=== PATIENT | female | born 1960 | race African-American/Black ===

== ENCOUNTER 2017-04-12 16:25 | Emergency (ER) | payer MEDICARE, OTHER ==
[~2017-04-12] VITALS: Ht 157.5 cm; Wt 90.0 kg
[~2017-04-12 16:25] MED LIST: ALBU17I INH; ATOR40TA PO; BUME1TAB PO; COUM5TAB PO; CYCL1PAK PO; DICY10CA13 PO; DOCU1CAP39 PO; DULE100A INH; FERR324T4 PO; FIORIC PO; FLUO20TA20 PO; FLUT50SP EACH NARE; GUAI100S6 PO; LEVO50TA48 PO; LISI-357 PO; METO50TA PO; METO5TAB46 PO; MONT10 PO; ONDA4 PO; PERC5TAB12 PO; POTA10TA2 PO; PROM25TA5 PO; PROT40TA PO; RANI150T PO; SODIPAK2; TERB1CRE2 TOP; XANA1TAB6 PO; ZOLP10TA3 PO
[2017-04-12 16:29] VITALS: BP 148/85; PULSE 103; RESP 18; TEMP 98.1; O2SAT 99
--- NOTE | 2017-04-12 17:00 | PD ---
HPI Chief Complaint: Fall Time Seen by Provider: 17:00 Travel History International Travel<30 days: No Contact w/Intl Traveler<30days: No Traveled to known affect area: No History of Present Illness HPI 56 YO F presents to the ED for evaluation of PFSH Past Medical History Hx Anticoagulant Therapy: Yes (WARFARIN ) Arthritis: Yes Asthma: Yes Autoimmune Disease: No Blood Disorders: No Anxiety: No Depression: No Heart Rhythm Problems: Yes (IRREGULAR HEART BEAT) Cancer: No Cardiac Catheterization: Yes (MAY 2004 30 TO 40% 1 SERGE CIRC) Cardiomyopathy: Yes Cardiovascular Problems: Yes (A-FIB, MECHANICAL HEART VALVE, PACEMAKER ) High Cholesterol: Yes Chemotherapy: No Chest Pain: Yes Congestive Heart Failure: Yes COPD: Yes Cerebrovascular Accident: No Coronary Artery Disease: Yes Diabetes: Yes (BORDERLINE) Diminished Hearing: No Endocrine: Yes Gastrointestinal Disorders: Yes (IRRITABLE BOWEL SYNDROME, GASTROPARESIS) GERD: Yes Glaucoma: No Genitourinary: No Headaches: Yes Hepatitis: No Hiatal Hernia: Yes Hypertension: Yes Immune Disorder: No Implanted Vascular Access Dvce: Yes Kidney Stones: No Musculoskeletal: No Neurologic: Yes Psychiatric: No Reproductive: No Respiratory: Yes (COPD) Migraines: No Myocardial Infarction: No Radiation Therapy: No Renal Failure: No Seizures: No Sickle Cell Disease: No Sleep Apnea: No Thyroid Disease: Yes (THYROID REMOVED) Ulcer: No : 4 Para: 4 Past Surgical History Abdominal Surgery: Yes (CHOLEY) AICD: No Appendectomy: No Arteriovenous Shunt: No Body Medical Devices: MECHANICAL HEART VALVE Cardiac Surgery: Yes (VALVE REPLACEMENT/ MECHANICAL VALVE) Cholecystectomy: Yes Coronary Artery Bypass Graft: Yes (2003) Endocrine Surgery: Yes Gynecologic Surgery: Yes (HYSTERECTOMY) Hysterectomy: Yes (FULL) Insulin Pump: No Joint Replacement: No Pacemaker: Yes (AICD [place],ANESTHESIA AWARE) Valve Replacement: Yes Other Surgery: Yes (GASTRIC BYPASS 2011) Social History Alcohol Use: No Tobacco Use: No Substance Use: No Allergies-Medications (Allergen,Severity, Reaction): Coded Allergies: Lovenox (Verified Allergy, Severe, RASH,HIVES,SEVERE ITCHING, 05/28/16) Lortab (Verified Adverse Reaction, Intermediate, NAUSEA/VOMITING, 05/28/16) Percodan (Verified Adverse Reaction, Intermediate, NAUSEA AND VOMITING, 05/28/16) Uncoded Allergies: ANTIBIOTICS (Adverse Reaction, Unknown, 05/28/16) PER PCP DONT TAKE ANY ANTIBIOTICS. Reported Meds & Prescriptions Reported Meds & Active Scripts Active Phenergan 25 mg (Promethazine HCl) 25 Mg Tab 25 Mg PO Q6H PRN Percocet 5-325 mg (Oxycodone/Acetaminophen) 1 Tab 1-2 Tab PO Q6H PRN Metoprolol Tartrate 50 mg (Metoprolol Tartrate) 50 Mg Tab 50 Mg PO DAILY Ferrous Sulfate 325 Mg Tab 325 Mg PO BID 28 Days Protonix (Pantoprazole Sodium) 40 Mg Tabdr 40 Mg PO BID Coumadin 5 mg (Warfarin Sodium) Warfarin Sodium 5 mg Tab 10 Mg PO DAILY 15mg po daily x 3 days then 10mg po daily Reported Xanax 1 mg (Alprazolam) Alprazolam 1 mg Tab 1 Tab PO BID Ambien 10 Mg Tab (Zolpidem Tartrate) 10 Mg Tab 10 Mg PO HS PRN Terbinafine Hcl 1 % Cre 1 Applic TOP 2-3 TIMES A DAY Ranitidine 150 mg (Ranitidine HCl) 150 Mg Tab 150 Mg PO BID Phenergan 25 mg (Promethazine HCl) 25 Mg Tab 25 Mg PO Q6H PRN Prepopik (Sodium Picosulfate-Magnesium O) Maximiliano DIRECTED Zofran 4 Mg Tab (Ondansetron Hcl) 4 Mg Tab 4 Mg PO Q8HR PRN Montelukast Sodium 10 Mg Tab 10 Mg PO HS Metolazone 5 Mg Tab 5 Mg PO DAILY Lisinopril 5 mg (Lisinopril) 5 Mg Tab 5 Mg PO DAILY Fluticasone Propionate (Nasal) 50 Mcg Spr 2 Page EACH NARE DAILY PRN Dulera 100 mcg/dose (Mometasone Furoate-Formoterol 100 mcg/dose) 100 mcg/ actuation Inh 1 Puff INH BID Cyclobenzaprine HCl 10 Mg Tab 10 Mg PO TID Colace 100 Mg Cap (Docusate Sodium) 100 Mg Cap 100 Mg PO Q12HR Robitussin Ac (Guaifenesin/Codeine Phosphate) Syrp 5 Ml PO Q8HR PRN FOR COUGH Fioricet Tab (Acetaminophen/Butalbital/Caffeine) 1 Tab 1-2 Tab PO Q4H PRN Fluoxetine (Fluoxetine HCl) 20MG Cap 40 Mg PO DAILY Dicyclomine 10 mg (Dicyclomine HCl) 10 Mg Cap 20 Mg PO BID Ventolin Hfa (Albuterol Sulfate) 108 Mcg/Act Aer 2 Puff INH Q4-6H PRN Atorvastatin 40 mg (Atorvastatin Calcium) 40 Mg Tab 40 Mg PO HS Potassium Chloride Er (Potassium Chloride) 10 Meq Tab 20 Meq PO DAILY Bumetanide 1 Mg (Bumetanide) 1 Mg Tab 1 Mg PO BID Levothroid (Levothyroxine Sodium) 50 Mcg Tab 50 Mcg PO DAILY Data Data Last Documented VS Vital Signs Date Time Temp Pulse Resp B/P Pulse Ox O2 Delivery O2 Flow Rate FiO2 04/12/17 16:29 98.1 103 18 148/85 99 Meenakshi Pinto Apr 12, 2017 17:00
--- NOTE | 2017-04-12 17:23 | PD ---
HPI Chief Complaint: Fall Time Seen by Provider: 17:22 Travel History International Travel<30 days: No Contact w/Intl Traveler<30days: No Traveled to known affect area: No History of Present Illness HPI 56 YO F with PMH of mechanical valve placement, on Coumadin presents to the ED for evaluation of bilateral knee and left hip pain. Onset just before arrival. Patient states that she fell in the hallway of the hospital onto to both knees. She has not been ambulatory since the accident. She denies hitting her head or loss of consciousness. Additionally the patient complains of "high Coumadin level." She states that she was called by her doctor yesterday and told that her Coumadin level was "800." PFSH Past Medical History Hx Anticoagulant Therapy: Yes (WARFARIN ) Arthritis: Yes Asthma: Yes Autoimmune Disease: No Blood Disorders: No Anxiety: No Depression: No Heart Rhythm Problems: Yes (IRREGULAR HEART BEAT) Cancer: No Cardiac Catheterization: Yes (MAY 2004 30 TO 40% 1 SERGE CIRC) Cardiomyopathy: Yes Cardiovascular Problems: Yes (A-FIB, MECHANICAL HEART VALVE, PACEMAKER ) High Cholesterol: Yes Chemotherapy: No Chest Pain: Yes Congestive Heart Failure: Yes COPD: Yes Cerebrovascular Accident: No Coronary Artery Disease: Yes Diabetes: Yes (BORDERLINE) Diminished Hearing: No Endocrine: Yes Gastrointestinal Disorders: Yes (IRRITABLE BOWEL SYNDROME, GASTROPARESIS) GERD: Yes Glaucoma: No Genitourinary: No Headaches: Yes Hepatitis: No Hiatal Hernia: Yes Hypertension: Yes Immune Disorder: No Implanted Vascular Access Dvce: Yes Kidney Stones: No Musculoskeletal: No Neurologic: Yes Psychiatric: No Reproductive: No Respiratory: Yes (COPD) Migraines: No Myocardial Infarction: No Radiation Therapy: No Renal Failure: No Seizures: No Sickle Cell Disease: No Sleep Apnea: No Thyroid Disease: Yes (THYROID REMOVED) Ulcer: No : 4 Para: 4 Past Surgical History Abdominal Surgery: Yes ([facility]LEY) AICD: No Appendectomy: No Arteriovenous Shunt: No Body Medical Devices: MECHANICAL HEART VALVE Cardiac Surgery: Yes (VALVE REPLACEMENT/ MECHANICAL VALVE) Cholecystectomy: Yes Coronary Artery Bypass Graft: Yes (2003) Endocrine Surgery: Yes Gynecologic Surgery: Yes (HYSTERECTOMY) Hysterectomy: Yes (FULL) Insulin Pump: No Joint Replacement: No Pacemaker: Yes (AICD [place],ANESTHESIA AWARE) Valve Replacement: Yes Other Surgery: Yes (GASTRIC BYPASS 2011) Social History Alcohol Use: No Tobacco Use: No Substance Use: No Allergies-Medications (Allergen,Severity, Reaction): Coded Allergies: Lovenox (Verified Allergy, Severe, RASH,HIVES,SEVERE ITCHING, 05/28/16) Lortab (Verified Adverse Reaction, Intermediate, NAUSEA/VOMITING, 05/28/16) Percodan (Verified Adverse Reaction, Intermediate, NAUSEA AND VOMITING, 05/28/16) Uncoded Allergies: ANTIBIOTICS (Adverse Reaction, Unknown, 05/28/16) PER PCP DONT TAKE ANY ANTIBIOTICS. Reported Meds & Prescriptions Reported Meds & Active Scripts Active Percocet (Oxycodone-Acetaminophen) 5-325 mg Tab 1 Tab PO Q6H PRN Phenergan 25 mg (Promethazine HCl) 25 Mg Tab 25 Mg PO Q6H PRN Percocet 5-325 mg (Oxycodone/Acetaminophen) 1 Tab 1-2 Tab PO Q6H PRN Metoprolol Tartrate 50 mg (Metoprolol Tartrate) 50 Mg Tab 50 Mg PO DAILY Ferrous Sulfate 325 Mg Tab 325 Mg PO BID 28 Days Protonix (Pantoprazole Sodium) 40 Mg Tabdr 40 Mg PO BID Coumadin 5 mg (Warfarin Sodium) Warfarin Sodium 5 mg Tab 10 Mg PO DAILY 15mg po daily x 3 days then 10mg po daily Reported Xanax 1 mg (Alprazolam) Alprazolam 1 mg Tab 1 Tab PO BID Ambien 10 Mg Tab (Zolpidem Tartrate) 10 Mg Tab 10 Mg PO HS PRN Terbinafine Hcl 1 % Cre 1 Applic TOP 2-3 TIMES A DAY Ranitidine 150 mg (Ranitidine HCl) 150 Mg Tab 150 Mg PO BID Phenergan 25 mg (Promethazine HCl) 25 Mg Tab 25 Mg PO Q6H PRN Prepopik (Sodium Picosulfate-Magnesium O) Maximiliano DIRECTED Zofran 4 Mg Tab (Ondansetron Hcl) 4 Mg Tab 4 Mg PO Q8HR PRN Montelukast Sodium 10 Mg Tab 10 Mg PO HS Metolazone 5 Mg Tab 5 Mg PO DAILY Lisinopril 5 mg (Lisinopril) 5 Mg Tab 5 Mg PO DAILY Fluticasone Propionate (Nasal) 50 Mcg Spr 2 [place] EACH NARE DAILY PRN Dulera 100 mcg/dose (Mometasone Furoate-Formoterol 100 mcg/dose) 100 mcg/ actuation Inh 1 Puff INH BID Cyclobenzaprinepax 10 & 0.0375-5 mg & % ([id number]) 10 Mg Tab 10 Mg PO TID Colace 100 Mg Cap (Docusate Sodium) 100 Mg Cap 100 Mg PO Q12HR Robitussin Ac (Guaifenesin/Codeine Phosphate) Syrp 5 Ml PO Q8HR PRN FOR COUGH Fioricet Tab (Acetaminophen/Butalbital/Caffeine) 1 Tab 1-2 Tab PO Q4H PRN Fluoxetine Hcl (Fluoxetine HCl) 20MG Cap 40 Mg PO DAILY Dicyclomine HCl 10 Mg Cap 20 Mg PO BID Ventolin Hfa (Albuterol Sulfate) 108 Mcg/Act Aer 2 Puff INH Q4-6H PRN Atorvastatin 40 mg (Atorvastatin Calcium) 40 Mg Tab 40 Mg PO HS Potassium Chloride Er (Potassium Chloride) 10 Meq Tab 20 Meq PO DAILY Bumetanide 1 Mg (Bumetanide) 1 Mg Tab 1 Mg PO BID Levothroid (Levothyroxine Sodium) 50 Mcg Tab 50 Mcg PO DAILY Review of Systems Except as stated in HPI: all other systems reviewed are Neg Physical Exam Narrative GENERAL: Well-nourished, well-developed black female in no acute distress. SKIN: Focused skin assessment warm/dry. No ecchymosis over the knees bilaterally. HEAD: Normocephalic. EYES: No scleral icterus. No injection or drainage. NECK: Supple, trachea midline. No JVD or lymphadenopathy. CARDIOVASCULAR: Regular rate and rhythm without murmurs, gallops, or rubs. 2+ DP pulses bilaterally. RESPIRATORY: Breath sounds clear and equal bilaterally. No accessory muscle use. GASTROINTESTINAL: Abdomen soft, non-tender, nondistended. Active bowel sounds. MUSCULOSKELETAL: No cyanosis, or edema. TTP of bilateral anterior knees. No popliteal tenderness. Pain elicited with attempted R OM. Tender to palpation of the lateral aspect of the left hip. No foreshortening or internal rotation of the leg noted. BACK: Nontender without obvious deformity. No CVA tenderness. Data Data Last Documented VS Vital Signs Date Time Temp Pulse Resp B/P Pulse Ox O2 Delivery O2 Flow Rate FiO2 04/12/17 19:05 89 18 139/81 100 Room Air 04/12/17 16:29 98.1 Orders Hip, Uni(Ap&Lat) W Ap Pelvis (04/12/17 17:29) Knee, Complete (4vws) (04/12/17 17:29) Knee, Complete (4vws) (04/12/17 17:29) Ice/Cold Pack (04/12/17 17:29) Basic Metabolic Panel (Bmp) (04/12/17 17:29) Complete Blood Count With Diff (04/12/17 17:29) Prothrombin Time / Inr (Pt) (04/12/17 17:29) Act Partial Throm Time (Ptt) (04/12/17 17:29) Urinalysis - C+S If Indicated (04/12/17 17:29) Iv Access Insert/Monitor (04/12/17 17:29) Ondansetron Inj (Zofran Inj) (04/12/17 17:30) Sodium Chloride 0.9% Flush (Ns Flush) (04/12/17 17:30) Ketorolac Inj (Toradol Inj) (04/12/17 17:45) Oxycodone-Acetamin 5-325 Mg (Percocet (04/12/17 17:45) Potassium Chloride (Kcl) (04/12/17 19:00) Potassium Chlor 20 Meq Premix (Kcl 20 Me (04/12/17 19:00) Labs Laboratory Tests Test 04/12/17 17:45 White Blood Count 8.4 TH/MM3 Red Blood Count 5.02 MIL/MM3 Hemoglobin 11.1 GM/DL Hematocrit 36.6 % Mean Corpuscular Volume 72.9 FL Mean Corpuscular Hemoglobin 22.1 PG Mean Corpuscular Hemoglobin 30.3 % Concent Red Cell Distribution Width 19.8 % Platelet Count 223 TH/MM3 Mean Platelet Volume 8.5 FL Neutrophils (%) (Auto) 70.5 % Lymphocytes (%) (Auto) 17.7 % Monocytes (%) (Auto) 10.6 % Eosinophils (%) (Auto) 0.8 % Basophils (%) (Auto) 0.4 % Neutrophils # (Auto) 5.9 TH/MM3 Lymphocytes # (Auto) 1.5 TH/MM3 Monocytes # (Auto) 0.9 TH/MM3 Eosinophils # (Auto) 0.1 TH/MM3 Basophils # (Auto) 0.0 TH/MM3 CBC Comment DIFF FINAL Differential Comment Prothrombin Time 15.0 SEC Prothromb Time International 1.3 RATIO Ratio Activated Partial 30.6 SEC Thromboplast Time Sodium Level 134 MEQ/L Potassium Level 2.7 MEQ/L Chloride Level 89 MEQ/L Carbon Dioxide Level 32.1 MEQ/L Anion Gap 13 MEQ/L Blood Urea Nitrogen 45 MG/DL Creatinine 1.58 MG/DL Estimat Glomerular Filtration 41 ML/MIN Rate Random Glucose 101 MG/DL Calcium Level 8.8 MG/DL MDM Medical Decision Making Medical Screen Exam Complete: Yes Emergency Medical Condition: Yes Differential Diagnosis musculoskeletal pain versus contusion versus fracture versus dislocation versus internal derangement versus other Narrative Course 56 YO F presents to the ED for evaluation of bilateral knee and left hip pain. Onset just before arrival. Patient states that she fell in the hallway of the hospital and to both knees. She has not been ambulatory since the accident. Additionally the patient complains of "high Coumadin level." She states that she was called by her doctor yesterday and told that her Coumadin level was "800." He is tachycardic in triage with this resolved during the course of evaluation. On physical exam this is a nontoxic-appearing obese black female in no acute distress. This tenderness to palpation of the anterior aspect of the bilateral knees in the lateral aspect of the left hip. Patient cries out with attempted ROM. His equal pulses in the distal extremity is bilaterally. I asked were applied. Patient was administered Toradol and Percocet. X-rays, labs ordered and pending. Disposition per Dr. Regalado. Scripts Oxycodone-Acetaminophen (Percocet)5-325 mg Tab1 Tab PO Q6H PRN (PAIN) #20 TAB Ref 0 Prov:Gerard Regalado MD 04/12/17 Meenakshi Pinto Apr 12, 2017 17:23
[2017-04-12] MEDS ORDERED: SODIUM CHLORIDE 0.9% FLUSH 10 ML FLUSH IV FLUSH PRN (17:30)
[2017-04-12] MEDS ORDERED: MORPHINE SULFATE 4 MG/ML INJ IV PUSH ONE (17:30)
[2017-04-12] MEDS ORDERED: ONDANSETRON HCL 4 MG/2 ML VIAL IVP ONE (17:30)
[2017-04-12] MEDS ORDERED: oxyCODONE/ACETAMINOPHEN 5 MG/325 MG TAB PO ONE (17:45)
[2017-04-12] MEDS ORDERED: KETOROLAC TROMETHAMINE 30 MG/ML (IVP) VIAL IV PUSH ONE (17:45)
[2017-04-12 18:05] LABS: AUTOMATED NEUTROPHIL # 5.9 TH/MM3 (1.8-7.7); BASOPHIL % 0.4 % (0.0-2.0); EOSINOPHIL # 0.1 TH/MM3 (0-0.4); EOSINOPHIL % 0.8 % (0.0-4.0); HEMATOCRIT 36.6 % (35.0-46.0); HEMO FLAGS DIFF FINAL; LYMPH % 17.7 % (9.0-44.0); LYMPHOCYTE # 1.5 TH/MM3 (1.0-4.8); MEAN CELL VOLUME 72.9 FL (80.0-100.0); MEAN CORPUSCULAR HEMOGLOBIN 22.1 PG (27.0-34.0); MEAN CORPUSCULAR HGB CONC 30.3 % (32.0-36.0); MONO % 10.6 % (0.0-8.0); NEUT % 70.5 % (16.0-70.0); PLATELET COUNT 223 TH/MM3 (150-450); RED BLOOD COUNT 5.02 MIL/MM3 (4.00-5.30); RED CELL DISTRIBUTION WIDTH 19.8 % (11.6-17.2); WHITE BLOOD COUNT 8.4 TH/MM3 (4.0-11.0)
[2017-04-12 18:12] LABS: APTT (PATIENT) 30.6 SEC (24.3-30.1); INTERNATIONAL NORMALIZED RATIO 1.3 RATIO
--- NOTE | 2017-04-12 18:17 | RADRPT ---
EXAM DATE/TIME: 04/12/2017 17:50 [facility] COMPARISON: No previous studies available for comparison. INDICATIONS : Left hip pain post fall today MEDICAL HISTORY : None. SURGICAL HISTORY : None. ENCOUNTER: Initial ACUITY: 1 day PAIN SCORE: 8/10 LOCATION: Left entire hip FINDINGS: 3 views of the left hip and pelvis. Bone alignment within normal limits. No evidence of fracture. No evidence of joint narrowing. CONCLUSION: No evidence of fracture. Hector Miles MD on April 12, 2017 at 18:13 Board Certified Radiologist. This report was verified electronically.
--- NOTE | 2017-04-12 18:20 | RADRPT ---
EXAM DATE/TIME: 04/12/2017 17:53 [facility] COMPARISON: No previous studies available for comparison. INDICATIONS : Right knee pain post fall today MEDICAL HISTORY : None. SURGICAL HISTORY : None. ENCOUNTER: Initial ACUITY: 1 day PAIN SCORE: 10/10 LOCATION: Right entire knee FINDINGS: 4 views of the right knee. Moderate-sized medial compartment osteophytes. Small lateral compartment a nd patellofemoral compartment osteophytes. Mild medial compartment narrowing. No evidence of fracture . No evidence of joint effusion. CONCLUSION: Mild to moderate osteoarthritic findings of the right knee. No evidence of fracture. Hector Miles MD on April 12, 2017 at 18:17 Board Certified Radiologist. This report was verified electronically.
--- NOTE | 2017-04-12 18:21 | RADRPT ---
EXAM DATE/TIME: 04/12/2017 17:55 [facility] COMPARISON: No previous studies available for comparison. INDICATIONS : Left knee pain post fall today MEDICAL HISTORY : None. SURGICAL HISTORY : None. ENCOUNTER: Initial ACUITY: 1 day PAIN SCORE: 10/10 LOCATION: Left entire knee FINDINGS: 4 views of left knee. Moderate-sized medial compartment osteophytes. Small lateral compartment and pa tellofemoral compartment osteophytes. Mild medial compartment narrowing. Bone alignment within normal limits. No evidence of fracture. No evidence of joint effusion. CONCLUSION: [id number] osteoarthritic findings. Hector Miles MD on April 12, 2017 at 18:18 Board Certified Radiologist. This report was verified electronically.
[2017-04-12 18:22] VITALS: BP 134/96; PULSE 62; RESP 18; O2SAT 99
[2017-04-12 18:33] LABS: BICARBONATE 32.1 MEQ/L (21.0-32.0)
[2017-04-12 18:36] LABS: POTASSIUM 2.7 MEQ/L (3.5-5.1)
[2017-04-12] MEDS ORDERED: POTASSIUM CHLOR 20 MEQ PREMIX 100 ML IV ONE (19:00)
[2017-04-12] MEDS ORDERED: POTASSIUM CHLORIDE 20 MEQ CONTROLLED RELEASE TAB PO ONE (19:00)
[2017-04-12 19:05] VITALS: BP 139/81; PULSE 89; RESP 18; O2SAT 100
--- NOTE | 2017-04-12 20:02 | PD ---
Physical Exam Narrative Patient was seen by my tourist information assistant and signed out to me. Patient fell on the right knee today and complains mostly of right knee pain. Patient also has history of hypokalemia. Data Data Last Documented VS Vital Signs Date Time Temp Pulse Resp B/P Pulse Ox O2 Delivery O2 Flow Rate FiO2 04/12/17 19:05 89 18 139/81 100 Room Air 04/12/17 16:29 98.1 Orders Hip, Uni(Ap&Lat) W Ap Pelvis (04/12/17 17:29) Knee, Complete (4vws) (04/12/17 17:29) Knee, Complete (4vws) (04/12/17 17:29) Ice/Cold Pack (04/12/17 17:29) Basic Metabolic Panel (Bmp) (04/12/17 17:29) Complete Blood Count With Diff (04/12/17 17:29) Prothrombin Time / Inr (Pt) (04/12/17 17:29) Act Partial Throm Time (Ptt) (04/12/17 17:29) Urinalysis - C+S If Indicated (04/12/17 17:29) Iv Access Insert/Monitor (04/12/17 17:29) Ondansetron Inj (Zofran Inj) (04/12/17 17:30) Sodium Chloride 0.9% Flush (Ns Flush) (04/12/17 17:30) Ketorolac Inj (Toradol Inj) (04/12/17 17:45) Oxycodone-Acetamin 5-325 Mg (Percocet (04/12/17 17:45) Potassium Chloride (Kcl) (04/12/17 19:00) Potassium Chlor 20 Meq Premix (Kcl 20 Me (04/12/17 19:00) Labs Laboratory Tests Test 04/12/17 17:45 White Blood Count 8.4 TH/MM3 Red Blood Count 5.02 MIL/MM3 Hemoglobin 11.1 GM/DL Hematocrit 36.6 % Mean Corpuscular Volume 72.9 FL Mean Corpuscular Hemoglobin 22.1 PG Mean Corpuscular Hemoglobin 30.3 % Concent Red Cell Distribution Width 19.8 % Platelet Count 223 TH/MM3 Mean Platelet Volume 8.5 FL Neutrophils (%) (Auto) 70.5 % Lymphocytes (%) (Auto) 17.7 % Monocytes (%) (Auto) 10.6 % Eosinophils (%) (Auto) 0.8 % Basophils (%) (Auto) 0.4 % Neutrophils # (Auto) 5.9 TH/MM3 Lymphocytes # (Auto) 1.5 TH/MM3 Monocytes # (Auto) 0.9 TH/MM3 Eosinophils # (Auto) 0.1 TH/MM3 Basophils # (Auto) 0.0 TH/MM3 CBC Comment DIFF FINAL Differential Comment Prothrombin Time 15.0 SEC Prothromb Time International 1.3 RATIO Ratio Activated Partial 30.6 SEC Thromboplast Time Sodium Level 134 MEQ/L Potassium Level 2.7 MEQ/L Chloride Level 89 MEQ/L Carbon Dioxide Level 32.1 MEQ/L Anion Gap 13 MEQ/L Blood Urea Nitrogen 45 MG/DL Creatinine 1.58 MG/DL Estimat Glomerular Filtration 41 ML/MIN Rate Random Glucose 101 MG/DL Calcium Level 8.8 MG/DL MDM Supervised Visit with LOWELL: Yes Interpretation(s) Last Impressions Knee X-Ray 04/12/[id number] Signed Impressions: Service Date/Time: Wednesday, April 12, 2017 17:53 - CONCLUSION: Mild to moderate osteoarthritic findings of the right knee. No evidence of fracture. Hector Miles MD Knee X-Ray 04/12/[id number] Signed Impressions: Service Date/Time: Wednesday, April 12, 2017 17:55 - CONCLUSION: Mild-to- moderate osteoarthritic findings. Hector Miles MD Hip and Pelvis X-Ray 04/12/171728 Signed Impressions: Service Date/Time: Wednesday, April 12, 2017 17:50 - CONCLUSION: No evidence of fracture. Hector Miles MD 1950 9 PM. CBC with WBC 8.4. Hemoglobin 11.1 hematocrit 36.6. MCV 72.9. Normal differential. Sodium 134. Potassium 2.7. Chloride 89. Bicarbonate 32.1. BUN 45. Creatinine 1.58. INR 1.3. Narrative Course Patient has history of low potassium in the past. Patient has been seen by physician for low potassium. KCl 40 mEq By mouth given. KCl 20 mEq IV given. Diagnosis Primary Impression: Contusion of right knee Qualified Code: S80.01XA - Contusion of right knee, initial encounter Additional Impression: Hypokalemia Patient Instructions: General Instructions Additional Instruction: Advised patient to continue with potassium supplement at home. Follow with local physician for potassium checked next week. Percocet as needed for pain. Med/Other Pt SpecificInfo: Prescription(s) given Scripts Oxycodone-Acetaminophen (Percocet)5-325 mg Tab1 Tab PO Q6H PRN (PAIN) #20 TAB Ref 0 Prov:Gerard Regalado MD 04/12/17 Disposition: 01 DISCHARGE HOME Condition: Stable Gerard Regalado MD Apr 12, 2017 20:02
[2017-04-12] MEDS ORDERED: PERC5TAB12 PO (20:10)
== END 2017-04-12 22:49 | disposition home or self-care (01) ==
LOC: NEPD 16:25
DX: S80.01XA Contusion of right knee, initial encounter (principal); E87.6 Hypokalemia; J45.909 Unspecified asthma, uncomplicated; I48.91 Unspecified atrial fibrillation; I42.9 Cardiomyopathy, unspecified; E78.00 Pure hypercholesterolemia, unspecified; I50.9 Heart failure, unspecified; J44.9 Chronic obstructive pulmonary disease, unspecified; E11.9 Type 2 diabetes mellitus without complications; I25.10 Atherosclerotic heart disease of native coronary artery without angina pectoris; I10 Essential (primary) hypertension; K21.9 Gastro-esophageal reflux disease without esophagitis; Z95.0 Presence of cardiac pacemaker; Z95.2 Presence of prosthetic heart valve; Z79.01 Long term (current) use of anticoagulants; W19.XXXA Unspecified fall, initial encounter; Y93.01 Activity, walking, marching and hiking; Y92.239 Unspecified place in hospital as the place of occurrence of the external cause; Y99.8 Other external cause status
CPT/HCPCS: 73502; 73564; 80048; 85025; 85610; 85730; 96374; 96375; 99284; J1885; J2405; J3480

== ENCOUNTER 2018-06-05 11:11 | Inpatient (IN) ==
--- NOTE | 2018-06-05 15:21 | ED ---
HPI General Chief complaint: Recheck/Abnormal Lab/Rx Stated complaint: Medication refill Time Seen by Provider: 06/05/18 14:31 Source: patient Mode of arrival: ambulatory Limitations: no limitations History of Present Illness HPI narrative: 57-year-old female presents emergency department at the request of her field service analyst, Dr. Patel, for evaluation and admission for heparin treatment. Patient states that she takes Coumadin for a mechanical heart valve and has not been detecting this level in her blood work. She also states that Dr. An was notified of this admission prior to her presenting to the emergency department today. Her past medical history is significant for congestive heart failure, mechanical mitral valve, atrial fibrillation, COPD, diabetes mellitus type 2 with CKD III, chronic anemia, asthma, hypothyroidism. Patient denies any bleeding disorders or issues regarding her Coumadin. Says she has been on Coumadin for approximately 10 years without any issues. She denies fever, chills, chest pain, shortness breath, abdominal pain, leg pain. She states compliance with all of her medication to include Coumadin. Related Data Home Medications Medication Instructions Recorded Confirmed albuterol sulfate 2 puff INHALATION QID PRN 06/05/18 06/05/18 alprazolam [Xanax] 0.5 mg PO TID PRN 06/05/18 06/05/18 carvedilol 12.5 mg PO BID 06/05/18 06/05/18 escitalopram oxalate [Lexapro] 10 mg PO QPM 06/05/18 06/05/18 fluticasone 2 spray INTRANASAL QPM 06/05/18 06/05/18 furosemide 80 mg PO DAILY 06/05/18 06/05/18 levothyroxine 50 mcg PO DAILY 06/05/18 06/05/18 magnesium oxide 500 mg PO DAILY 06/05/18 06/05/18 oxycodone-acetaminophen [Percocet] 1 tab PO TID PRN 06/05/18 06/05/18 pantoprazole 40 mg PO BID 06/05/18 06/05/18 sennosides-docusate sodium [Senna 2 tab PO QPM 06/05/18 06/05/18 Laxative-Stool Softener] warfarin [Coumadin] 7.5 mg PO 5XW 06/05/18 06/05/18 warfarin [Coumadin] 10 mg PO 2XWEEK 06/05/18 06/05/18 zolpidem 5 mg PO QPM PRN 06/05/18 06/05/18 Allergies Allergy/AdvReac Type Severity Reaction Status Date / Time enoxaparin Allergy Severe RASH,HIVES,SEVERE Verified 06/05/18 15:03 ITCHING aspirin AdvReac Intermediate NAUSEA AND Unverified 06/11/17 14:09 VOMITING hydrocodone AdvReac Intermediate NAUSEA/VOMI Verified 06/05/18 15:03 TING Review of Systems ROS: all other systems reviewed are negative [facility] Medical History Medical History CHF (congestive heart failure) (Acute) COPD (chronic obstructive pulmonary disease) (Acute) HTN (hypertension) (Acute) History of thyroidectomy (Acute) Surgical History Surgical History AICD (automatic cardioverter/defibrillator) present (Acute) History of appendectomy (Acute) History of gastric bypass (Acute) Mechanical heart valve present (Acute) Status post complete hysterectomy (Acute) Social History Social History Substance History: No History of Abuse Smoking Status: Never smoker How Often Do You Have a Drink Containing Alcohol: Never Recent Travel in [facility] within the Last 8 Weeks: No Recent Out of Country Travel within the Last 8 Weeks: No Immunization History Tetanus Immunization: <5 Years Hx Influenza Vaccine This Season: Yes Exam Narrative Exam Narrative: GENERAL: Well-developed, well-nourished in no apparent distress SKIN: Focused skin assessment warm/dry. HEAD: Atraumatic. Normocephalic. EYES: Pupils equal and round. No scleral icterus. No injection or drainage. ENT: No nasal bleeding or discharge. Mucous membranes pink and moist. NECK: Trachea midline. No JVD. CARDIOVASCULAR: Regular rate and rhythm. No murmur appreciated. RESPIRATORY: No accessory muscle use. Clear to auscultation. Breath sounds equal bilaterally. GASTROINTESTINAL: Abdomen soft, non-tender, nondistended. Hepatic and splenic margins not palpable. MUSCULOSKELETAL: No obvious deformities. No clubbing. No cyanosis. No edema. No tenderness to palpation of the calves NEUROLOGICAL: Awake and alert. No obvious cranial nerve deficits. Motor grossly within normal limits. Normal speech. PSYCHIATRIC: Appropriate mood and affect; insight and judgment normal. Course Initial Documented Vital Signs Temperature 97.8 F 06/05/18 11:20 Pulse Rate 87 06/05/18 11:20 Respiratory Rate 16 06/05/18 11:20 Blood Pressure 103/69 06/05/18 11:20 Pulse Oximetry 97 06/05/18 11:20 Last Documented Vital Signs Temperature 97.8 F 06/05/18 11:20 Pulse Rate 86 06/05/18 14:51 Respiratory Rate 18 06/05/18 14:51 Blood Pressure 119/82 06/05/18 14:51 Pulse Oximetry 99 06/05/18 14:51 Medical Decision Making MDM Narrative Medical decision making narrative: 49-year-old female presents emergency department at the request of her field service analyst, Dr. Patel, for evaluation and treatment with heparin for mechanical heart valve and atrial fibrillation. She states that the level has been subtherapeutic. She was also notified that Dr. An was aware of her arriving to the emergency department for this issue. Vital signs are stable. Physical exam findings essentially unremarkable. 49-year-old female well- nourished, well-developed in no acute distress. Patient brought in paperwork from Dr. Patel. There was a lab collected yesterday for INR which was 1.2. Her target is 2.5-3.5 as she has mechanical heart valve. Patient also had labs done May 27. BUN/creatinine 96/2.61, EGFR 22 Labs ordered for initial evaluation and are stable. Pt has no complaints at this time. Patient will be admitted to Dr. An as originally planned. Differential Diagnosis Differential Diagnosis: Supratherapeutic INR, subtherapeutic INR, medication noncompliance Lab Data Result diagrams: 06/05/18 15:35 06/05/18 15:35 Lab Results 06/05/18 06/05/18 06/05/18 Range/Units 15:35 15:35 15:35 WBC 4.4 (4.0-11.0) th/mm3 RBC 4.42 (4.00-5.30) mil/mm3 Hgb 11.5 L (11.6-15.3) gm/dL Hct 37.3 (35.0-46.0) % MCV 84.5 (80.0-100.0) fL MCH 26.0 L (27.0-34.0) pg MCHC 30.8 L (32.0-36.0) % RDW 19.7 H (11.6-17.2) % Plt Count 181 (150-450) th/mm3 MPV 8.4 (7.0-11.0) fL Neut % (Auto) 57.1 (16.0-70.0) % Lymph % (Auto) 24.5 (9.0-44.0) % [place] % (Auto) 16.1 H (0.0-8.0) % Eos % (Auto) 1.8 (0.0-4.0) % Baso % (Auto) 0.5 (0.0-2.0) % Neut # (Auto) 2.5 (1.8-7.7) th/mm3 Lymph # (Auto) 1.1 (1.0-4.8) th/mm3 [place] # (Auto) 0.7 (0.0-0.9) th/mm3 Eos # (Auto) 0.1 (0.0-0.4) th/mm3 Baso # (Auto) 0.0 (0.0-0.2) th/mm3 WBC Differential . Differential Comment Auto diff final PT 12.7 H (9.8-11.6) sec INR 1.3 Ratio APTT 29.2 (24.3-30.1) sec Sodium 138 (136-145) meq/L Potassium 3.2 L (3.5-5.1) meq/L Chloride 97 L (98-107) meq/L Carbon Dioxide 33.4 H (21.0-32.0) meq/L Anion Gap 8 (5-15) meq/L BUN 50 H (7-18) mg/dL Creatinine 1.81 H (0.50-1.00) mg/dL Estimated GFR 35 L (>89) mL/min Random Glucose 97 (74-106) mg/dL Calcium 8.9 (8.5-10.1) mg/dL Total Bilirubin 0.9 (0.2-1.0) mg/dL AST 37 (15-37) U/L ALT 22 (10-53) U/L Alkaline Phosphatase 100 (45-117) U/L Total Protein 7.3 (6.4-8.2) g/dL Albumin 3.4 (3.4-5.0) g/dL Discharge Plan Discharge Disposition Patient Disposition: 30 Still Patient Discharge Condition Condition: Stable Discharge Details Diagnosis: Subtherapeutic international normalized ratio (INR) Physicians Team ED Provider: Lucas Aragon ED Midlevel Provider: Asha Ocampo Primary Care Provider: Bao Villarreal Attending Provider: Abdiel An Discharge Interventions Interventions: Vital Signs Last Done: 06/05/18 14:51 Status ED Status: Admitted Observation Patient
[2018-06-05 16:29] LABS: Baso % (Auto) 0.5 % (0.0-2.0); Eos # (Auto) 0.1 th/mm3 (0.0-0.4); Eos % (Auto) 1.8 % (0.0-4.0); Hematocrit 37.3 % (35.0-46.0); Hemoglobin 11.5 gm/dL (11.6-15.3); Lymph # (Auto) 1.1 th/mm3 (1.0-4.8); Lymph % (Auto) 24.5 % (9.0-44.0); Mean Corpuscular Volume 84.5 fL (80.0-100.0); Mean Platelet Volume 8.4 fL (7.0-11.0); Mono # (Auto) 0.7 th/mm3 (0.0-0.9); Mono % (Auto) 16.1 % (0.0-8.0); Neut # (Auto) 2.5 th/mm3 (1.8-7.7); Neut % (Auto) 57.1 % (16.0-70.0); Platelet Count 181 th/mm3 (150-450); Red Blood Count 4.42 mil/mm3 (4.00-5.30); Red Cell Distribution Width 19.7 % (11.6-17.2); White Blood Count 4.4 th/mm3 (4.0-11.0)
[2018-06-05 16:32] LABS: Mean Corpuscular HGB Conc 30.8 % (32.0-36.0)
[2018-06-05 16:48] LABS: Activated Partial Thrombo Time 29.2 sec (24.3-30.1); Alanine Aminotransferase 22 U/L (10-53); Albumin 3.4 g/dL (3.4-5.0); Anion Gap 8 meq/L (5-15); Aspartate Aminotransferase 37 U/L (15-37); Blood Urea Nitrogen 50 mg/dL (7-18); Calcium 8.9 mg/dL (8.5-10.1); Carbon Dioxide 33.4 meq/L (21.0-32.0); Chloride 97 meq/L (98-107); Glomerular Filtration Rate 35 mL/min (>89); Glucose,Random 97 mg/dL (74-106); INR 1.3 Ratio; Potassium 3.2 meq/L (3.5-5.1); Prothrombin Time 12.7 sec (9.8-11.6); Sodium 138 meq/L (136-145)
[2018-06-05 16:51] LABS: Alkaline Phosphatase 100 U/L (45-117); Total Protein 7.3 g/dL (6.4-8.2)
[2018-06-05] MEDS ORDERED: Acetaminophen 325 MG Tablet PO PRN (16:57)
[2018-06-05] MEDS ORDERED: ALPRAZolam 0.5 MG Tablet PO PRN (17:00)
--- NOTE | 2018-06-05 17:20 | P.HPIM ---
History of Present Illness Service: Pt is 57 yo with systolic chf ef 20%, afib, nsvt s/p bivaicd, copd, ckd 3, and mechanical mitral valve. Called by her cooling pipe inspector today. Pt with subtherapuetic inr of 1.2. about 10d ago it was 2.5..Pt says she was on her usual dose of 7.5mg 2x week and 5mg 5x week when she was admitted to [facility] 3weeks ago with supretherapeutic inr. She says the dose was reduced to 10mg 2x week and 2.5mg 5x per week. I was called today and told she was taking 7.5mg alternating with 5mg. Pt family also expresses concern that pt is not taking her medications correctly. Dr Patel says she uses heparin frequently at other hospital and has no allergic reactions to heparin as she did with enoxaparin. PMH: systolic chf. EF less 20% NSVT. s/p biv aicd mechanical mitral valve copd atrial fibrillation diabetes chronic anemia obdulia en y gastric bypass. 2010 gastritis ckd 3 anxiety glaucoma campylobacter diarrhea c.diff depression gastroparesis gerd hypothyroidism IBS lap shelia lysis of adhesion wedge resection stomach/abscess MVR. mechanical incisional hernia partial thyroidectomy sh. no etoh/tob Primary Care Physician: Bao Villarreal MD - Diagnosis (1) Subtherapeutic anticoagulation (2) H/O mitral valve replacement with mechanical valve (3) CKD (chronic kidney disease) stage 3, GFR 30-59 ml/min (4) Systolic CHF, chronic (5) Atrial fibrillation (6) COPD (chronic obstructive pulmonary disease) Review of Systems low inr PMFSH - History History Provided By: Patient - Medical History Medical History: Medical History (Last Updated 06/05/18 @ 15:32 by Eva Briggs RN) CHF (congestive heart failure) COPD (chronic obstructive pulmonary disease) HTN (hypertension) History of thyroidectomy - Surgical History Surgical History: Surgical History (Last Reviewed 06/05/18 @ 15:32 by Eva Briggs RN) AICD (automatic cardioverter/defibrillator) present History of appendectomy History of gastric bypass Mechanical heart valve present Status post complete hysterectomy - Tobacco History Smoking Status: Never smoker - Alcohol History How Often Do You Have a Drink Containing Alcohol: Never - Substance Use History Substance History: No History of Abuse - Travel History Recent Travel in the [facility] Within the Last 8 Weeks: No Recent Travel Out of the Country Within the Last 8 Weeks: No - Immunization History Tetanus Immunization: <5 Years Hx Influenza Vaccine This Season: Yes Medications and Allergies Active Medications: Active Medications Acetaminophen (Tylenol) 650 mg PO Q4H PRN PRN Reason: Temp > 100.4 Al Hydroxide/Mg Hydroxide (Milk Of Sandor Liq) 30 ml PO Q12H PRN PRN Reason: Mild Constipation Albuterol (Ventolin Hfa Inh) 2 puff INH QID PRN PRN Reason: Dyspnea Alprazolam (Xanax) 0.5 mg PO TID PRN PRN Reason: Anxiety Carvedilol (Coreg) 12.5 mg PO BID JEOVANNY Escitalopram Oxalate (Lexapro) 10 mg PO QPM JEOVANNY Fluticasone Propionate (Flonase Nasal [place]) 2 spray EACH NARE QPM JEOVANNY Furosemide (Lasix) 80 mg PO DAILY [facility] Heparin Sodium/Dextrose (Heparin/D5w 25,000 U/250 Ml) 25,000 unit in 250 mls @ 0 mls/hr IV.CONT TITRATE PRN; Protocol PRN Reason: Per Protocol Non-Formulary Medication (Levothyroxine [Levothyroxine]) 50 mcg PO DAILY JEOVANNY Non-Formulary Medication (Magnesium Oxide [Magnesium Oxide]) 500 mg PO DAILY JEOVANNY Oxycodone/Acetaminophen (Percocet 7.5/325 Mg) 1 tab PO TID PRN PRN Reason: Pain Pantoprazole Sodium (Protonix) 40 mg PO BID [facility] Senna/Docusate Sodium (Merline-Colace) 2 tab PO QPM JEOVANNY Warfarin Sodium (Coumadin) 10 mg PO DAILY@1600 JEOVANNY Zolpidem Tartrate (Ambien) 5 mg PO QPM PRN PRN Reason: Insomnia Allergies Allergy/AdvReac Type Severity Reaction Status Date / Time enoxaparin Allergy Severe RASH,HIVES,SEVERE Verified 06/05/18 15:03 ITCHING aspirin AdvReac Intermediate NAUSEA AND Verified 06/05/18 18:11 VOMITING hydrocodone AdvReac Intermediate NAUSEA/VOMI Verified 06/05/18 15:03 TING Home Medications Medication Instructions Recorded Confirmed Type albuterol sulfate 2 puff INHALATION QID PRN 06/05/18 06/05/18 History alprazolam [Xanax] 0.5 mg PO TID PRN 06/05/18 06/05/18 History carvedilol 12.5 mg PO BID 06/05/18 06/05/18 History escitalopram oxalate [Lexapro] 10 mg PO QPM 06/05/18 06/05/18 History fluticasone 2 spray INTRANASAL QPM 06/05/18 06/05/18 History furosemide 80 mg PO DAILY 06/05/18 06/05/18 History levothyroxine 50 mcg PO DAILY 06/05/18 06/05/18 History magnesium oxide 500 mg PO DAILY 06/05/18 06/05/18 History oxycodone-acetaminophen [Percocet] 1 tab PO TID PRN 06/05/18 06/05/18 History pantoprazole 40 mg PO BID 06/05/18 06/05/18 History ramipril PO DAILY 06/05/18 History sennosides-docusate sodium [Senna 2 tab PO QPM 06/05/18 06/05/18 History Laxative-Stool Softener] tiotropium bromide [Spiriva with 18 mcg INHALATION DAILY 06/05/18 06/05/18 History HandiHaler] warfarin [Coumadin] 5 mg PO DIRECTED 06/05/18 06/05/18 History zolpidem 5 mg PO QPM PRN 06/05/18 06/05/18 History Exam Vital signs: Vital Signs 06/05/18 11:20 06/05/18 14:51 Temperature 97.8 F Pulse Rate 87 86 Respiratory Rate 16 18 Blood Pressure 103/69 119/82 Pulse Oximetry 97 99 Intake & Output 06/04/18 06/05/18 06/05/18 18:59 06:59 18:59 Weight 79.832 kg heart. irreg. mvr click lung cta abd s/nt ext no edema Results - Labs CBC & Chem 7: 06/05/18 15:35 06/05/18 15:35 Labs: Short CBC 06/05/18 Range/Units 15:35 WBC 4.4 (4.0-11.0) th/mm3 Hgb 11.5 L (11.6-15.3) gm/dL Hct 37.3 (35.0-46.0) % Plt Count 181 (150-450) th/mm3 BMP 06/05/18 15:35 Sodium 138 Potassium 3.2 L Chloride 97 L Carbon Dioxide 33.4 H BUN 50 H Creatinine 1.81 H Calcium 8.9 Liver Function 06/05/18 Range/Units 15:35 Total Bilirubin 0.9 (0.2-1.0) mg/dL AST 37 (15-37) U/L ALT 22 (10-53) U/L Alkaline Phosphatase 100 (45-117) U/L Albumin 3.4 (3.4-5.0) g/dL Caprini VTE Risk Assessment Caprini VTE Risk Assessment: Moderate/High Risk (score >= 2) Caprini Risk Assessment Model: Point Value = 1 Point Value = 2 Point Value = 3 Point Value = 5 Age 41-60 Minor surgery BMI > 25 kg/m2 Swollen legs Varicose veins or History of unexplained or recurrent spontaneous Oral contraceptives or hormone replacement Sepsis (< 1 month) Serious lung disease, including pneumonia (< 1 month) Abnormal pulmonary function Acute myocardial infarction Congestive heart failure (< 1 month) History of inflammatory bowel disease Medical patient at bed rest Age 61-74 Arthroscopic surgery Major open surgery (> 45 min) Laparoscopic surgery (> 45 min) Malignancy Confined to bed (> 72 hours) Immobilizing plaster cast Central venous access Age >= 75 History of VTE Family history of VTE Factor V Leiden Prothrombin [id number] Lupus anticoagulant Anticardiolipin antibodies Elevated serum homocysteine Heparin-induced thrombocytopenia Other congenital or acquired thrombophilia Stroke (< 1 month) Elective arthroplasty Hip, pelvis, or leg fracture Acute spinal cord injury (< 1 month) Prophylaxis Regimen: Total Risk Factor Score Risk Level Prophylaxis Regimen 0-1 Low Early ambulation 2 Moderate Order ONE of the following: *Sequential Compression Device (SCD) *Heparin 5000 units SQ BID 3-4 Higher Order ONE of the following medications: *Heparin 5000 units SQ TID *Enoxaparin/Lovenox 40 mg SQ daily (WT < 150 kg, CrCl > 30 mL/min) *Enoxaparin/Lovenox 30 mg SQ daily (WT < 150 kg, CrCl > 10-29 mL/min) *Enoxaparin/Lovenox 30 mg SQ BID (WT < 150 kg, CrCl > 30 mL/min) AND/OR *Sequential Compression Device (SCD) 5 or more Highest Order ONE of the following medications: *Heparin 5000 units SQ TID (Preferred with Epidurals) *Enoxaparin/Lovenox 40 mg SQ daily (WT < 150 kg, CrCl > 30 mL/min) *Enoxaparin/Lovenox 30 mg SQ daily (WT < 150 kg, CrCl > 10-29 mL/min) *Enoxaparin/Lovenox 30 mg SQ BID (WT < 150 kg, CrCl > 30 mL/min) AND *Sequential Compression Device (SCD) Assessment and Plan - Assessment (1) Subtherapeutic anticoagulation Code(s): Z51.81 - Encounter for therapeutic drug level monitoring; Z79.01 - insurance claims specialist (current) use of anticoagulants Status: Acute Plan: 1.chronic systolic chf. ef 20%. currently compensated. 2.hx nsvt. biv aicd 3. mitral mechanical valve replacement. subtherapeutic inr. 4. ckd 3 5. copd. compensated. 6. atrial fibrillation called by cooling pipe inspector to admit for subtherapeutic inr for [employer]. MVR says pt not allergic to heparin and uses all the time at [facility] heparin gtt protocol ordered coumadin initiated monitor inr. discussed discharge plans with family to assist with medication administration. resume other home medications and hold as needed. (2) H/O mitral valve replacement with mechanical valve Code(s): Z95.2 - Presence of prosthetic heart valve Status: Acute (3) CKD (chronic kidney disease) stage 3, GFR 30-59 ml/min Code(s): N18.3 - Chronic kidney disease, stage 3 (moderate) Status: Chronic (4) Systolic CHF, chronic Code(s): I50.22 - Chronic systolic (congestive) heart failure Status: Chronic (5) Atrial fibrillation Code(s): I48.91 - Unspecified atrial fibrillation Status: Chronic (6) COPD (chronic obstructive pulmonary disease) Code(s): J44.9 - Chronic obstructive pulmonary disease, unspecified Status: Acute
--- NOTE | 2018-06-05 20:49 | P.PN ---
Subjective Interval history: Called to evaluate pt re: possible allergy to heparin since she is allergic to Lovenox. She has a plethora of underlying medical issues, but has been admitted for subtherapeutic INR in pt with mechanical valve. Discussed case with Dr An who talked with pt's design project manager, Dr Patel. I reviewed charts and d/w pt. she has been on heparin drip multiple times since she has an "allergic reaction" to Lovenox (she describes her reaction as a rash all over her body after her gastric bypass surgery." She didn't have throat tightness or other signs of anaphylaxis per her report. In either case, record review and her design project manager confirm that pt has not had any reaction to heparin. She typically is admitted at [facility] facility and was actually just d/c in mid-April from that facility. She was on abx and her INR dani to 4.3 on 05/20/18. her coumadin was held a couple of days and she was to resume previous dose as her abx were complete. There was some apparent confusion re: her understanding of dose to resume and she started taking 2.5 mg each , , F, Sa, Garcia and 10mg each M, Th instead of 10mg each M, Th and 7.5 mg all other days. Her INR was therefore low at 1.2 as outpt and she was sent in for heparin ggt by her design project manager. She has o/w been doing well and been c/w meds. No recent med changes except finishing abx and tapering pred from April hospital stay. Physical Exam Vital signs: Vital Signs 06/05/18 11:20 06/05/18 14:51 06/05/18 17:30 Temperature 97.8 F Pulse Rate 87 86 85 Respiratory Rate 16 18 20 Blood Pressure 103/69 119/82 99/56 L Pulse Oximetry 97 99 98 06/05/18 19:16 Temperature Pulse Rate 88 Respiratory Rate 15 Blood Pressure 90/69 L Pulse Oximetry 100 Intake & Output 06/05/18 06/05/18 06/06/18 06:59 18:59 06:59 Weight 79.832 kg Narrative: GENERAL: NAD, pleasant, sitting on side of bed, recognized me from previous care SKIN: Warm, xerotic HEAD: Normocephalic. EYES: No scleral icterus. No injection or drainage. NECK: Supple, trachea midline. No JVD or lymphadenopathy. CARDIOVASCULAR: Regular rate and rhythm with mid-systolic click and 2/6 LENKA along LSB RESPIRATORY: Breath sounds equal bilaterally. No accessory muscle use. No crackles, no wheeze GASTROINTESTINAL: Abdomen soft, non-tender, nondistended. BS nml MUSCULOSKELETAL: No cyanosis, FLEMING, 1+ edema in distal LE BACK: Nontender without obvious deformity. No CVA tenderness. Results - Labs CBC & Chem 7: 06/05/18 15:35 06/05/18 15:35 Laboratory Results - last 24 hr 06/05/18 06/05/18 06/05/18 15:35 15:35 15:35 WBC 4.4 Corrected WBC RBC 4.42 Hgb 11.5 L Hct 37.3 MCV 84.5 MCH 26.0 L MCHC 30.8 L RDW 19.7 H Plt Count 181 MPV 8.4 Neut % (Auto) 57.1 Lymph % (Auto) 24.5 [place] % (Auto) 16.1 H Eos % (Auto) 1.8 Baso % (Auto) 0.5 Neut # (Auto) 2.5 Lymph # (Auto) 1.1 [place] # (Auto) 0.7 Eos # (Auto) 0.1 Baso # (Auto) 0.0 WBC Differential . Differential Comment Auto diff final Hematology Comments PT 12.7 H INR 1.3 APTT 29.2 Sodium 138 Potassium 3.2 L Chloride 97 L Carbon Dioxide 33.4 H Anion Gap 8 BUN 50 H Creatinine 1.81 H Estimated GFR 35 L Random Glucose 97 Calcium 8.9 Total Bilirubin 0.9 AST 37 ALT 22 Alkaline Phosphatase 100 Total Protein 7.3 Albumin 3.4 06/05/18 15:35 WBC Cancelled Corrected WBC Cancelled RBC Cancelled Hgb Cancelled Hct Cancelled MCV Cancelled MCH Cancelled MCHC Cancelled RDW Cancelled Plt Count Cancelled MPV Cancelled Neut % (Auto) Lymph % (Auto) [place] % (Auto) Eos % (Auto) Baso % (Auto) Neut # (Auto) Lymph # (Auto) [place] # (Auto) Eos # (Auto) Baso # (Auto) WBC Differential Differential Comment Hematology Comments Cancelled PT INR APTT Sodium Potassium Chloride Carbon Dioxide Anion Gap BUN Creatinine Estimated GFR Random Glucose Calcium Total Bilirubin AST ALT Alkaline Phosphatase Total Protein Albumin Assessment and Plan - Assessment (1) Subtherapeutic international normalized ratio (INR) Code(s): R79.1 - Abnormal coagulation profile Status: Acute Plan: Likely due to miscommunication re: dose to resume recently. See above progress note for details. We will continue warfarin and start heparin. Pt has not had any adverse reaction to heparin despite listing Lovenox as allergy. Pharmacist and floor nurse informed to start hep ggt per previous orders. - Plan Code Status: full Discussed Condition With: pt, ER nurse, floor nurse, Dr An and hospital pharmacist
[2018-06-05] MEDS: Escitalopram 10 MG Tablet PO SCH (21:05)
[2018-06-05] MEDS: Senna/Docusate Sodium 8.6/50 MG Tablet PO SCH (21:05)
[2018-06-05] MEDS: Carvedilol 12.5 MG Tablet PO SCH (21:05)
[2018-06-05] MEDS: Zolpidem Tartrate 5 MG Tablet PO PRN (21:50)
[2018-06-05] MEDS: Heparin Drip 25,000 UNIT/250 ML BAG IV.CONT PRN (21:51)
[2018-06-06 04:30] LABS: Baso # (Auto) 0.1 th/mm3 (0.0-0.2); Baso % (Auto) 1.1 % (0.0-2.0); Eos # (Auto) 0.1 th/mm3 (0.0-0.4); Eos % (Auto) 1.9 % (0.0-4.0); Hemoglobin 10.1 gm/dL (11.6-15.3); Lymph # (Auto) 1.3 th/mm3 (1.0-4.8); Lymph % (Auto) 26.3 % (9.0-44.0); Mean Corpuscular HGB Conc 32.5 % (32.0-36.0); Mean Corpuscular Hemoglobin 26.8 pg (27.0-34.0); Mean Corpuscular Volume 82.7 fL (80.0-100.0); Mean Platelet Volume 8.7 fL (7.0-11.0); Mono # (Auto) 0.7 th/mm3 (0.0-0.9); Mono % (Auto) 14.1 % (0.0-8.0); Neut # (Auto) 2.8 th/mm3 (1.8-7.7); Neut % (Auto) 56.6 % (16.0-70.0); Platelet Count 177 th/mm3 (150-450); Red Blood Count 3.75 mil/mm3 (4.00-5.30); Red Cell Distribution Width 19.6 % (11.6-17.2)
[2018-06-06 04:32] LABS: INR 1.2 Ratio; Prothrombin Time 12.6 sec (9.8-11.6)
[2018-06-06 04:35] LABS: Calcium 8.5 mg/dL (8.5-10.1); Carbon Dioxide 29.2 meq/L (21.0-32.0); Potassium 3.5 meq/L (3.5-5.1)
[2018-06-06] MEDS: Levothyroxine 50 MCG Tablet PO SCH (06:33)
[2018-06-06] MEDS: Ramipril 2.5 MG Capsule PO SCH (09:59)
[2018-06-06] MEDS: Furosemide 40 MG Tablet PO SCH (09:59)
[2018-06-06] MEDS: Carvedilol 12.5 MG Tablet PO SCH ×2 (10:00→21:54)
[2018-06-06] MEDS: Magnesium Oxide 400 MG Tablet PO SCH (10:00)
[2018-06-06] MEDS: Tiotropium Bromide 18 MCG/ACT Inhaler INH SCH (10:05)
--- NOTE | 2018-06-06 10:41 | P.PNIM ---
Subjective Interval history: Pt complains today of bilateral knee pain and stiffness which is a chronic issue she reports is secondary to chronic osteoarthritis. She takes Percocet Q6H as needed at home. Pts INR is 1.2 this morning She is currently on Heparin gtt and tolerating this well. Physical Exam Vital signs: Vital Signs 06/05/18 11:20 06/05/18 14:51 06/05/18 17:30 Temperature 97.8 F Pulse Rate 87 86 85 Respiratory Rate 16 18 20 Blood Pressure 103/69 119/82 99/56 L Pulse Oximetry 97 99 98 06/05/18 19:16 06/05/18 20:00 06/06/18 00:00 Temperature 97.8 F 97.9 F Pulse Rate 88 82 75 Respiratory Rate 15 18 18 Blood Pressure 90/69 L 104/64 97/53 L Pulse Oximetry 100 98 97 06/06/18 02:34 06/06/18 04:00 06/06/18 09:05 Temperature 97.8 F 98.2 F Pulse Rate 84 68 Respiratory Rate 15 18 20 Blood Pressure 90/56 L 100/60 Pulse Oximetry 98 95 Intake & Output 06/05/18 06/06/18 06/06/18 18:59 06:59 18:59 Intake Total 380 / 380 Balance 380 / 380 Weight 79.832 kg 79.2 kg Intake: Oral 380 / 380 Other: # Voids 1 Date of Last Bowel Movement 06/04/18 06/04/18 Narrative: GENERAL: NAD, AAOx3 CARDIO: Regular rate and rhythm with mid-systolic click and 2/6 LENKA along LSB RESP: Breath sounds equal bilaterally. ABD: +BS, soft, non-tender, nondistended. EXT: No cyanosis, FLEMING, 1+ edema in distal LE Results - Labs CBC & Chem 7: 06/06/18 03:35 06/06/18 03:35 Laboratory Results - last 24 hr 06/05/18 06/05/18 06/05/18 15:35 15:35 15:35 WBC 4.4 Corrected WBC RBC 4.42 Hgb 11.5 L Hct 37.3 MCV 84.5 MCH 26.0 L MCHC 30.8 L RDW 19.7 H Plt Count 181 MPV 8.4 Neut % (Auto) 57.1 Lymph % (Auto) 24.5 [place] % (Auto) 16.1 H Eos % (Auto) 1.8 Baso % (Auto) 0.5 Neut # (Auto) 2.5 Lymph # (Auto) 1.1 [place] # (Auto) 0.7 Eos # (Auto) 0.1 Baso # (Auto) 0.0 WBC Differential . Differential Comment Auto diff final Hematology Comments PT 12.7 H INR 1.3 APTT 29.2 Sodium 138 Potassium 3.2 L Chloride 97 L Carbon Dioxide 33.4 H Anion Gap 8 BUN 50 H Creatinine 1.81 H Estimated GFR 35 L Random Glucose 97 Calcium 8.9 Total Bilirubin 0.9 AST 37 ALT 22 Alkaline Phosphatase 100 Total Protein 7.3 Albumin 3.4 06/05/18 06/05/18 06/06/18 15:35 23:45 03:35 WBC Cancelled 5.0 Corrected WBC Cancelled RBC Cancelled 3.75 L Hgb Cancelled 10.1 L Hct Cancelled 31.0 L MCV Cancelled 82.7 MCH Cancelled 26.8 L MCHC Cancelled 32.5 RDW Cancelled 19.6 H Plt Count Cancelled 177 MPV Cancelled 8.7 Neut % (Auto) 56.6 Lymph % (Auto) 26.3 [place] % (Auto) 14.1 H Eos % (Auto) 1.9 Baso % (Auto) 1.1 Neut # (Auto) 2.8 Lymph # (Auto) 1.3 [place] # (Auto) 0.7 Eos # (Auto) 0.1 Baso # (Auto) 0.1 WBC Differential . Differential Comment Auto diff final Hematology Comments Cancelled PT INR APTT 39.0 H D Sodium Potassium Chloride Carbon Dioxide Anion Gap BUN Creatinine Estimated GFR Random Glucose Calcium Total Bilirubin AST ALT Alkaline Phosphatase Total Protein Albumin 06/06/18 06/06/18 06/06/18 03:35 03:35 03:35 WBC Corrected WBC RBC Hgb Hct MCV MCH MCHC RDW Plt Count MPV Neut % (Auto) Lymph % (Auto) [place] % (Auto) Eos % (Auto) Baso % (Auto) Neut # (Auto) Lymph # (Auto) [place] # (Auto) Eos # (Auto) Baso # (Auto) WBC Differential Differential Comment Hematology Comments PT 12.6 H INR 1.2 APTT 65.4 H D Sodium 138 Potassium 3.5 Chloride 101 Carbon Dioxide 29.2 Anion Gap 8 BUN 48 H Creatinine 1.51 H Estimated GFR 43 L Random Glucose 85 Calcium 8.5 Total Bilirubin AST ALT Alkaline Phosphatase Total Protein Albumin Assessment and Plan - Assessment (1) Subtherapeutic anticoagulation Code(s): Z51.81 - Encounter for therapeutic drug level monitoring; Z79.01 - terminal gauger (current) use of anticoagulants Status: Acute Plan: Mitral mechanical valve replacement, subtherapeutic INR - We were called by senior software developer to admit for subtherapeutic INR for [facility]. MVR - Pt says she is NOT allergic to heparin and uses all the time at [facility]. She typically is admitted at [facility] facility and was actually just d/c in mid-April from that facility. She was on Abx at that time and her INR dani to 4.3 on 05/20/18. Her Coumadin was held a couple of days and she was to resume previous dose as her abx were complete. - There was some apparent confusion re: her understanding of dose to resume and she started taking 2.5 mg each , , , , Garcia and 10mg each , Th instead of 10mg each , Th and 7.5 mg all other days. Her INR therefore decreased to 1.2 as outpt and she was sent in for heparin ggt by her senior software developer. - Coumadin resumed at 10mg daily dose - Cont. Heparin gtt - Monitor INR daily and PT/PTT per protocol - Ciscussed discharge plans with family to assist with medication administration. Chronic systolic CHF, EF 20%, currently compensated - Home meds continued CKD, stage 3 - Labs are around baseline - Monitor COPD, compensated. - Duonebs PRN Atrial fibrillation Hx NSVT s/p BIV AICD The exam, history, and the medical decision-making described in the above note were completed with the assistance of the mid-level provider. I reviewed and agree with the findings presented. I attest that I had a [id number] encounter with the patient on the same day, and personally performed and documented my assessment and findings in the medical record. (2) H/O mitral valve replacement with mechanical valve Code(s): Z95.2 - Presence of prosthetic heart valve Status: Acute (3) CKD (chronic kidney disease) stage 3, GFR 30-59 ml/min Code(s): N18.3 - Chronic kidney disease, stage 3 (moderate) Status: Chronic (4) Systolic CHF, chronic Code(s): I50.22 - Chronic systolic (congestive) heart failure Status: Chronic (5) Atrial fibrillation Code(s): I48.91 - Unspecified atrial fibrillation Status: Chronic (6) COPD (chronic obstructive pulmonary disease) Code(s): J44.9 - Chronic obstructive pulmonary disease, unspecified Status: Acute
[2018-06-06] MEDS: ALPRAZolam 0.5 MG Tablet PO PRN ×2 (12:30→23:10)
[2018-06-06] MEDS: Heparin Drip 25,000 UNIT/250 ML BAG IV.CONT PRN (13:57)
--- NOTE | 2018-06-06 14:32 | ECG ---
Date Performed: 06/05/2018 Time Performed: 15:51:59 PTAGE: 57 years EKG: JUNCTIONAL RHYTHM POSSIBLE LEFT VENTRICULAR HYPERTROPHY NONSPECIFIC T-WAVE ABNORMALITY PROL ONGED QT INTERVAL ABNORMAL ECG Since the PREVIOUS TRACING , no significant change noted PREVIOUS TRACIN05/28/2016 09.58 DOCTOR: Laron Cormier Interpretating Date/Time 06/06/2018 14:31:04
[2018-06-06] MEDS: Escitalopram 10 MG Tablet PO SCH (17:41)
[2018-06-06] MEDS: Senna/Docusate Sodium 8.6/50 MG Tablet PO SCH (17:44)
[2018-06-06] MEDS: Zolpidem Tartrate 5 MG Tablet PO PRN (23:09)
[2018-06-07] MEDS: Levothyroxine 50 MCG Tablet PO SCH (06:11)
[2018-06-07 06:21] LABS: Baso % (Auto) 0.5 % (0.0-2.0); Eos # (Auto) 0.1 th/mm3 (0.0-0.4); Eos % (Auto) 1.8 % (0.0-4.0); Hematocrit 32.3 % (35.0-46.0); Hemoglobin 10.1 gm/dL (11.6-15.3); Lymph # (Auto) 1.4 th/mm3 (1.0-4.8); Lymph % (Auto) 32.6 % (9.0-44.0); Mean Corpuscular HGB Conc 31.3 % (32.0-36.0); Mean Corpuscular Volume 83.2 fL (80.0-100.0); Mean Platelet Volume 8.3 fL (7.0-11.0); Mono # (Auto) 0.7 th/mm3 (0.0-0.9); Mono % (Auto) 16.1 % (0.0-8.0); Neut # (Auto) 2.1 th/mm3 (1.8-7.7); Platelet Count 197 th/mm3 (150-450); Red Blood Count 3.88 mil/mm3 (4.00-5.30); Red Cell Distribution Width 19.9 % (11.6-17.2); White Blood Count 4.4 th/mm3 (4.0-11.0)
[2018-06-07] MEDS: Tiotropium Bromide 18 MCG/ACT Inhaler INH SCH (09:01)
[2018-06-07] MEDS: Magnesium Oxide 400 MG Tablet PO SCH (09:01)
[2018-06-07] MEDS: Carvedilol 12.5 MG Tablet PO SCH (09:01)
[2018-06-07] MEDS: Furosemide 40 MG Tablet PO SCH (09:01)
[2018-06-07] MEDS: Ramipril 2.5 MG Capsule PO SCH (09:01)
[2018-06-07] MEDS: ALPRAZolam 0.5 MG Tablet PO PRN ×2 (09:13→20:37)
--- NOTE | 2018-06-07 10:24 | P.PNIM ---
Subjective Interval history: Pt complains of some sinus congestion and headache and is requesting Benadryl as this has worked in the past when she has had sinus pain and congestion. Afebrile Vitals are stable Less anxious today Physical Exam Vital signs: Vital Signs 06/06/18 13:31 06/06/18 20:00 06/07/18 00:00 Temperature 98.2 F 98.3 F 97.2 F L Pulse Rate 78 86 74 Respiratory Rate 18 18 18 Blood Pressure 100/62 111/67 86/53 L Pulse Oximetry 95 97 97 06/07/18 00:45 06/07/18 04:00 06/07/18 08:00 Temperature 97.6 F 97.2 F L Pulse Rate 69 71 Respiratory Rate 16 18 Blood Pressure 110/58 L 93/63 L 95/62 L Pulse Oximetry 99 96 Intake & Output 06/06/18 06/07/18 06/07/18 18:59 06:59 18:59 Intake Total 250 / 250 420 / 420 Balance 250 / 250 420 / 420 Weight 79.7 kg Intake: IV 250 / 250 Heparin/D5W 25,000 U/250 mL 25, 250 / 250 000 unit In 250 ml @ 1,400 UNITS/HR 14 mls/hr IV.CONT TITRATE PRN Rx#:[id number] Oral 420 / 420 Other: # Voids 4 Date of Last Bowel Movement 06/04/18 06/04/18 Narrative: GENERAL: NAD, AAOx3 CARDIO: Regular rate and rhythm with mid-systolic click and 2/6 LENKA along LSB RESP: Breath sounds equal bilaterally. ABD: +BS, soft, non-tender, nondistended. EXT: No cyanosis, FLEMING, 1+ edema in distal LE Results - Labs CBC & Chem 7: 06/07/18 05:50 06/06/18 03:35 Laboratory Results - last 24 hr 06/06/18 06/06/18 06/06/18 11:15 16:13 23:09 WBC RBC Hgb Hct MCV MCH MCHC RDW Plt Count MPV Neut % (Auto) Lymph % (Auto) [place] % (Auto) Eos % (Auto) Baso % (Auto) Neut # (Auto) Lymph # (Auto) [place] # (Auto) Eos # (Auto) Baso # (Auto) WBC Differential Differential Comment APTT 100.7 H* D 61.8 H D 86.1 H D 06/07/18 06/07/18 05:50 05:50 WBC 4.4 RBC 3.88 L Hgb 10.1 L Hct 32.3 L MCV 83.2 MCH 26.0 L MCHC 31.3 L RDW 19.9 H Plt Count 197 MPV 8.3 Neut % (Auto) 49.0 Lymph % (Auto) 32.6 [place] % (Auto) 16.1 H Eos % (Auto) 1.8 Baso % (Auto) 0.5 Neut # (Auto) 2.1 Lymph # (Auto) 1.4 [place] # (Auto) 0.7 Eos # (Auto) 0.1 Baso # (Auto) 0.0 WBC Differential . Differential Comment Auto diff final APTT 73.7 H Assessment and Plan - Assessment (1) Subtherapeutic anticoagulation Code(s): Z51.81 - Encounter for therapeutic drug level monitoring; Z79.01 - FDC (current) use of anticoagulants Status: Acute Plan: Mitral mechanical valve replacement, subtherapeutic INR - We were called by electric motor tester assembler to admit for subtherapeutic INR for [facility]. MVR - Pt says she is NOT allergic to heparin and uses all the time at [facility]. She typically is admitted at [facility] facility and was actually just d/c in mid-April from that facility. She was on Abx at that time and her INR dain to 4.3 on 05/20/18. Her Coumadin was held a couple of days and she was to resume previous dose as her abx were complete. - There was some apparent confusion re: her understanding of dose to resume and she started taking 2.5 mg each , , , Sa, Garcia and 10mg each M, Th instead of 10mg each M, Th and 7.5 mg all other days. Her INR therefore decreased to 1.2 as outpt and she was sent in for heparin ggt by her electric motor tester assembler. - Coumadin 10mg daily dose for now - Cont. Heparin gtt - Monitor INR daily and PT/PTT per protocol - INR is pending for today - Discussed discharge plans with family to assist with medication administration. Chronic systolic CHF, EF 20%, currently compensated - Home meds continued CKD, stage 3 - Labs are around baseline - Monitor COPD, compensated. - Duonebs PRN Atrial fibrillation Hx NSVT s/p BIV AICD (2) H/O mitral valve replacement with mechanical valve Code(s): Z95.2 - Presence of prosthetic heart valve Status: Acute (3) CKD (chronic kidney disease) stage 3, GFR 30-59 ml/min Code(s): N18.3 - Chronic kidney disease, stage 3 (moderate) Status: Chronic (4) Systolic CHF, chronic Code(s): I50.22 - Chronic systolic (congestive) heart failure Status: Chronic (5) Atrial fibrillation Code(s): I48.91 - Unspecified atrial fibrillation Status: Chronic (6) COPD (chronic obstructive pulmonary disease) Code(s): J44.9 - Chronic obstructive pulmonary disease, unspecified Status: Acute
[2018-06-07 10:33] LABS: INR 1.5 Ratio; Prothrombin Time 15.1 sec (9.8-11.6)
[2018-06-07] MEDS: Heparin Drip 25,000 UNIT/250 ML BAG IV.CONT PRN (16:30)
[2018-06-07] MEDS: Senna/Docusate Sodium 8.6/50 MG Tablet PO SCH (18:06)
[2018-06-07] MEDS: Escitalopram 10 MG Tablet PO SCH (18:06)
[2018-06-07] MEDS: Zolpidem Tartrate 5 MG Tablet PO PRN (23:08)
[2018-06-08] MEDS: Carvedilol 12.5 MG Tablet PO SCH ×3 (02:47→08:37)
[2018-06-08] MEDS: Levothyroxine 50 MCG Tablet PO SCH (05:20)
[2018-06-08] MEDS: Furosemide 40 MG Tablet PO SCH (08:30)
[2018-06-08] MEDS: Ramipril 2.5 MG Capsule PO SCH ×2 (08:30→08:38)
[2018-06-08] MEDS: Magnesium Oxide 400 MG Tablet PO SCH (08:30)
[2018-06-08] MEDS: Tiotropium Bromide 18 MCG/ACT Inhaler INH SCH ×2 (08:31→08:42)
[2018-06-08 09:24] LABS: Baso % (Auto) 0.4 % (0.0-2.0); Eos # (Auto) 0.1 th/mm3 (0.0-0.4); Eos % (Auto) 1.9 % (0.0-4.0); Hematocrit 34.5 % (35.0-46.0); Hemoglobin 10.9 gm/dL (11.6-15.3); Lymph # (Auto) 1.3 th/mm3 (1.0-4.8); Lymph % (Auto) 28.5 % (9.0-44.0); Mean Corpuscular HGB Conc 31.7 % (32.0-36.0); Mean Corpuscular Hemoglobin 26.3 pg (27.0-34.0); Mean Platelet Volume 8.1 fL (7.0-11.0); Mono # (Auto) 0.7 th/mm3 (0.0-0.9); Neut # (Auto) 2.4 th/mm3 (1.8-7.7); Neut % (Auto) 53.2 % (16.0-70.0); Platelet Count 209 th/mm3 (150-450); Red Blood Count 4.16 mil/mm3 (4.00-5.30); Red Cell Distribution Width 19.4 % (11.6-17.2); White Blood Count 4.5 th/mm3 (4.0-11.0)
[2018-06-08 09:32] LABS: INR 1.8 Ratio; Prothrombin Time 18.2 sec (9.8-11.6)
[2018-06-08 09:48] LABS: Calcium 8.4 mg/dL (8.5-10.1); Carbon Dioxide 31.3 meq/L (21.0-32.0); Potassium 3.1 meq/L (3.5-5.1)
--- NOTE | 2018-06-08 09:54 | P.PNIM ---
Subjective Interval history: Pt complains of joint pain in her knees which she feels is from not being as mobile as she normally is Otherwise no new complaints Physical Exam Vital signs: Vital Signs 06/07/18 12:00 06/07/18 16:00 06/07/18 20:00 Temperature 97.9 F 97.4 F L 97.4 F L Pulse Rate 79 69 72 Respiratory Rate 18 18 18 Blood Pressure 94/56 L 94/57 L Pulse Oximetry 97 98 95 06/08/18 00:00 06/08/18 02:30 06/08/18 04:00 Temperature 97.5 F L 97.5 F L Pulse Rate 92 H 94 H Respiratory Rate 18 16 17 Blood Pressure 111/58 L 99/56 L Pulse Oximetry 97 95 06/08/18 08:39 Temperature 97.7 F Pulse Rate 78 Respiratory Rate 16 Blood Pressure 95/60 L Pulse Oximetry 96 Intake & Output 06/07/18 06/08/18 06/08/18 18:59 06:59 18:59 Intake Total 730 / 730 Balance 730 / 730 Weight 79.7 kg Intake: IV 250 / 250 Heparin/D5W 25,000 U/250 mL 25, 250 / 250 000 unit In 250 ml @ 1,400 UNITS/HR 14 mls/hr IV.CONT TITRATE PRN Rx#:[id number] Oral 480 / 480 Other: # Voids 3 7 Date of Last Bowel Movement 06/07/18 Narrative: GENERAL: NAD, AAOx3 CARDIO: Regular rate and rhythm with mid-systolic click and 2/6 LENKA along LSB RESP: Breath sounds equal bilaterally. ABD: +BS, soft, non-tender, nondistended. EXT: No cyanosis, FLEMING, 1+ edema in distal LE Results - Labs CBC & Chem 7: 06/08/18 08:35 06/08/18 08:35 Laboratory Results - last 24 hr 06/07/18 06/07/18 06/08/18 05:50 14:43 08:35 WBC 4.5 RBC 4.16 Hgb 10.9 L Hct 34.5 L MCV 83.0 MCH 26.3 L MCHC 31.7 L RDW 19.4 H Plt Count 209 MPV 8.1 Neut % (Auto) 53.2 Lymph % (Auto) 28.5 [place] % (Auto) 16.0 H Eos % (Auto) 1.9 Baso % (Auto) 0.4 Neut # (Auto) 2.4 Lymph # (Auto) 1.3 [place] # (Auto) 0.7 Eos # (Auto) 0.1 Baso # (Auto) 0.0 WBC Differential . Differential Comment Auto diff final PT 15.1 H INR 1.5 APTT 65.4 H 06/08/18 06/08/18 08:35 08:35 WBC RBC Hgb Hct MCV MCH MCHC RDW Plt Count MPV Neut % (Auto) Lymph % (Auto) [place] % (Auto) Eos % (Auto) Baso % (Auto) Neut # (Auto) Lymph # (Auto) [place] # (Auto) Eos # (Auto) Baso # (Auto) WBC Differential Differential Comment PT 18.2 H INR 1.8 APTT 72.3 H Assessment and Plan - Assessment (1) Subtherapeutic anticoagulation Code(s): Z51.81 - Encounter for therapeutic drug level monitoring; Z79.01 - MCFP (current) use of anticoagulants Status: Acute Plan: Mitral mechanical valve replacement, subtherapeutic INR - We were called by greensman to admit for subtherapeutic INR for [facility]. MVR - Pt says she is NOT allergic to heparin and uses all the time at [facility]. She typically is admitted at [facility] facility and was actually just d/c in mid-April from that facility. Her INR dani to 4.3 on 05/20/18. Her Coumadin was held a couple of days and she was to resume. There was some apparent confusion re: her understanding of dose to resume and she started taking 2.5 mg each , , , , and 10mg each , instead of 10mg each , Th and 7.5 mg all other days. Her INR therefore decreased to 1.2 as outpt and she was sent in for heparin ggt by her greensman. - Resume previous dosing of Coumadin 10mg on - and 7.5mg on Pw-Wh-Os--Sa dose as she reports that she had been stable on this dose for quite some time. - Cont. Heparin gtt - Monitor INR daily and PT/PTT per protocol - INR is 1.8 today - Discussed discharge plans with family to assist with medication administration. Chronic systolic CHF, EF 20%, currently compensated - Home meds continued CKD, stage 3 - Labs are around baseline - Monitor COPD, compensated. - Duonebs PRN Atrial fibrillation Hx NSVT s/p BIV AICD The exam, history, and the medical decision-making described in the above note were completed with the assistance of the mid-level provider. I reviewed and agree with the findings presented. I attest that I had a [id number] encounter with the patient on the same day, and personally performed and documented my assessment and findings in the medical record. (2) H/O mitral valve replacement with mechanical valve Code(s): Z95.2 - Presence of prosthetic heart valve Status: Acute (3) CKD (chronic kidney disease) stage 3, GFR 30-59 ml/min Code(s): N18.3 - Chronic kidney disease, stage 3 (moderate) Status: Chronic (4) Systolic CHF, chronic Code(s): I50.22 - Chronic systolic (congestive) heart failure Status: Chronic (5) Atrial fibrillation Code(s): I48.91 - Unspecified atrial fibrillation Status: Chronic (6) COPD (chronic obstructive pulmonary disease) Code(s): J44.9 - Chronic obstructive pulmonary disease, unspecified Status: Acute
[2018-06-08] MEDS: ALPRAZolam 0.5 MG Tablet PO PRN (14:18)
[2018-06-08] MEDS: Escitalopram 10 MG Tablet PO SCH (17:37)
[2018-06-08] MEDS: Senna/Docusate Sodium 8.6/50 MG Tablet PO SCH (17:37)
[2018-06-08] MEDS: Heparin Drip 25,000 UNIT/250 ML BAG IV.CONT PRN (21:15)
[2018-06-09] MEDS: Carvedilol 12.5 MG Tablet PO SCH ×3 (00:25→22:37)
[2018-06-09] MEDS: Zolpidem Tartrate 5 MG Tablet PO PRN ×2 (00:26→22:37)
[2018-06-09] MEDS: ALPRAZolam 0.5 MG Tablet PO PRN ×2 (03:39→18:54)
[2018-06-09] MEDS: Levothyroxine 50 MCG Tablet PO SCH (05:31)
[2018-06-09 07:19] LABS: INR 2.1 Ratio; Prothrombin Time 21.7 sec (9.8-11.6)
[2018-06-09 07:44] LABS: Calcium 8.7 mg/dL (8.5-10.1); Carbon Dioxide 29.7 meq/L (21.0-32.0)
[2018-06-09 07:58] LABS: Potassium 4.4 meq/L (3.5-5.1)
--- NOTE | 2018-06-09 08:06 | P.DCO ---
- Home Health Nursing Order: Medical education, Signs/symptoms of disease process, Medication education-adverse effect, Nursing assessment with vital signs Instructions: INR in 2 days with results to [employer] Dr. Santiago Patel - Certification I have seen patient Brandy Nguyen on 06/09/18. My clinical findings support the need for the requested home health care services because: Medication compliance is questionable I certify that my clinical findings support that this patient is homebound because: Poor cardiac reserve
[2018-06-09] MEDS: Ramipril 2.5 MG Capsule PO SCH (09:07)
[2018-06-09] MEDS: Furosemide 40 MG Tablet PO SCH (09:07)
[2018-06-09] MEDS: Magnesium Oxide 400 MG Tablet PO SCH (09:07)
[2018-06-09] MEDS: Tiotropium Bromide 18 MCG/ACT Inhaler INH SCH (09:08)
--- NOTE | 2018-06-09 09:08 | P.PNIM ---
Subjective Interval history: Patient c/o bilateral knee, "arthritis pain." Patient feels that this is due to decreased mobility in the hospital. Offers no other complaints at this time Physical Exam Vital signs: Vital Signs 06/08/18 12:00 06/08/18 16:00 06/08/18 17:38 Temperature 97.6 F Pulse Rate 85 Respiratory Rate 14 16 Blood Pressure 111/67 102/65 Pulse Oximetry 97 06/08/18 20:00 06/09/18 00:00 06/09/18 01:30 Temperature 97.2 F L 98.2 F Pulse Rate 69 79 Respiratory Rate 17 16 15 Blood Pressure 92/50 L 92/52 L Pulse Oximetry 97 98 06/09/18 05:36 Temperature 97.9 F Pulse Rate 78 Respiratory Rate 15 Blood Pressure 94/57 L Pulse Oximetry 95 Intake & Output 06/08/18 06/09/18 06/09/18 18:59 06:59 18:59 Intake Total 250 / 250 250 / 250 Output Total 150 / 150 Balance 100 / 100 250 / 250 Weight 79.6 kg Intake: IV 250 / 250 Heparin/D5W 25,000 U/250 mL 25, 250 / 250 000 unit In 250 ml @ 1,400 UNITS/HR 14 mls/hr IV.CONT TITRATE PRN Rx#:[id number] Oral 250 / 250 Output: Urine 150 / 150 Other: # Voids 5 Date of Last Bowel Movement 06/07/18 06/07/18 Narrative: GENERAL: NAD, AAOx3 CARDIO: Regular rate and rhythm with mid-systolic click and 2/6 LENKA along LSB RESP: Breath sounds equal bilaterally. ABD: +BS, soft, non-tender, nondistended. EXT: No cyanosis, FLEMING, trace edema in distal BLE Results - Labs CBC & Chem 7: 06/08/18 08:35 06/09/18 06:19 Laboratory Results - last 24 hr 06/08/18 06/08/18 06/08/18 08:35 08:35 08:35 WBC 4.5 RBC 4.16 Hgb 10.9 L Hct 34.5 L MCV 83.0 MCH 26.3 L MCHC 31.7 L RDW 19.4 H Plt Count 209 MPV 8.1 Neut % (Auto) 53.2 Lymph % (Auto) 28.5 [place] % (Auto) 16.0 H Eos % (Auto) 1.9 Baso % (Auto) 0.4 Neut # (Auto) 2.4 Lymph # (Auto) 1.3 [place] # (Auto) 0.7 Eos # (Auto) 0.1 Baso # (Auto) 0.0 WBC Differential . Differential Comment Auto diff final PT 18.2 H INR 1.8 APTT Sodium 134 L Potassium 3.1 L Chloride 94 L Carbon Dioxide 31.3 Anion Gap 9 BUN 50 H Creatinine 1.63 H Estimated GFR 39 L Random Glucose 84 Calcium 8.4 L 06/08/18 06/09/18 06/09/18 08:35 06:19 06:19 WBC RBC Hgb Hct MCV MCH MCHC RDW Plt Count MPV Neut % (Auto) Lymph % (Auto) [place] % (Auto) Eos % (Auto) Baso % (Auto) Neut # (Auto) Lymph # (Auto) [place] # (Auto) Eos # (Auto) Baso # (Auto) WBC Differential Differential Comment PT 21.7 H INR 2.1 APTT 72.3 H Sodium 135 L Potassium 4.4 D Chloride 98 Carbon Dioxide 29.7 Anion Gap 7 BUN 52 H Creatinine 1.67 H Estimated GFR 38 L Random Glucose 81 Calcium 8.7 Assessment and Plan - Assessment (1) Subtherapeutic international normalized ratio (INR) Code(s): R79.1 - Abnormal coagulation profile Status: Acute Plan: Mitral mechanical valve replacement, subtherapeutic INR - We were called by cnc applications engineer to admit for subtherapeutic INR for [facility]. MVR - Pt says she is NOT allergic to heparin and uses all the time at [facility]. She typically is admitted at [facility] facility and was actually just d/c in mid-April from that facility. Her INR dani to 4.3 on 05/20/18. Her Coumadin was held a couple of days and she was to resume. There was some apparent confusion re: her understanding of dose to resume and she started taking 2.5 mg each , , , , Garcia and 10mg each , Th instead of 10mg each , Th and 7.5 mg all other days. Her INR therefore decreased to 1.2 as outpt and she was sent in for heparin ggt by her cnc applications engineer. - Resume previous dosing of Coumadin 10mg on and 7.5mg on Pw-Pk-Tq dose as she reports that she had been stable on this dose for quite some time. - Cont. Heparin gtt - Monitor INR daily and PT/PTT per protocol - INR is 2.1 today - Dr. An previously discussed discharge plans with family to assist with medication administration. Chronic systolic CHF, EF 20%, currently compensated - Home meds continued CKD, stage 3 - Labs are around baseline - Monitor COPD, compensated. - Duonebs PRN Atrial fibrillation Hx NSVT s/p BIV AICD PT consulted (2) H/O mitral valve replacement with mechanical valve Code(s): Z95.2 - Presence of prosthetic heart valve Status: Acute (3) Systolic CHF, chronic Code(s): I50.22 - Chronic systolic (congestive) heart failure Status: Chronic (4) Atrial fibrillation Code(s): I48.91 - Unspecified atrial fibrillation Status: Chronic (5) COPD (chronic obstructive pulmonary disease) Code(s): J44.9 - Chronic obstructive pulmonary disease, unspecified Status: Acute
[2018-06-09] MEDS: Escitalopram 10 MG Tablet PO SCH (18:53)
[2018-06-09] MEDS: Senna/Docusate Sodium 8.6/50 MG Tablet PO SCH (18:53)
[2018-06-10] MEDS: Heparin Drip 25,000 UNIT/250 ML BAG IV.CONT PRN (04:26)
[2018-06-10 04:52] LABS: INR 2.1 Ratio; Prothrombin Time 21.6 sec (9.8-11.6)
[2018-06-10] MEDS: Levothyroxine 50 MCG Tablet PO SCH (06:45)
[2018-06-10] MEDS: Ramipril 2.5 MG Capsule PO SCH (08:40)
[2018-06-10] MEDS: Furosemide 40 MG Tablet PO SCH (08:40)
[2018-06-10] MEDS: Carvedilol 12.5 MG Tablet PO SCH ×2 (08:40→21:47)
[2018-06-10] MEDS: Magnesium Oxide 400 MG Tablet PO SCH (08:41)
[2018-06-10] MEDS: Tiotropium Bromide 18 MCG/ACT Inhaler INH SCH (08:42)
[2018-06-10] MEDS: Escitalopram 10 MG Tablet PO SCH (17:29)
[2018-06-10] MEDS: ALPRAZolam 0.5 MG Tablet PO PRN (17:30)
--- NOTE | 2018-06-10 17:59 | P.PNIM ---
Subjective Interval history: Patient sitting up on edge of bed eating dinner offers no new concerns reports feeling well Physical Exam Vital signs: Vital Signs 06/09/18 20:00 06/10/18 00:00 06/10/18 04:00 Temperature 97.6 F 97.7 F 98 F Pulse Rate 81 68 75 Respiratory Rate 17 17 15 Blood Pressure 118/75 94/61 L 116/56 L Pulse Oximetry 97 98 98 06/10/18 08:00 06/10/18 12:00 06/10/18 16:00 Temperature 98.5 F 97.8 F 98.1 F Pulse Rate 85 73 81 Respiratory Rate 17 16 17 Blood Pressure 86/54 L 92/53 L 109/55 L Pulse Oximetry 97 97 98 Intake & Output 06/09/18 06/10/18 06/10/18 18:59 06:59 18:59 Intake Total 730 / 730 Balance 730 / 730 Weight 79.2 kg Intake: IV 250 / 250 Heparin/D5W 25,000 U/250 mL 25, 250 / 250 000 unit In 250 ml @ 1,400 UNITS/HR 14 mls/hr IV.CONT TITRATE PRN Rx#:[id number] Oral 480 / 480 Other: # Voids 3 5 Date of Last Bowel Movement 06/07/13 06/09/18 # Bowel Movements 2 3 Narrative: GENERAL: NAD, AAOx3 CARDIO: Regular rate and rhythm with mid-systolic click and 2/6 LENKA along LSB RESP: Breath sounds equal bilaterally. ABD: +BS, soft, non-tender, nondistended. EXT: No cyanosis, FLEMING, trace edema in distal BLE Results - Labs CBC & Chem 7: 06/08/18 08:35 06/09/18 06:19 Laboratory Results - last 24 hr 06/09/18 06/10/18 06/10/18 17:01 03:20 03:20 PT 21.6 H INR 2.1 APTT 87.4 H D 71.4 H 06/10/18 09:14 PT INR APTT 61.8 H Assessment and Plan - Assessment (1) Subtherapeutic international normalized ratio (INR) Code(s): R79.1 - Abnormal coagulation profile Status: Acute Plan: Mitral mechanical valve replacement, subtherapeutic INR - We were called by offal roller to admit for subtherapeutic INR for [facility]. MVR - Pt says she is NOT allergic to heparin and uses all the time at [facility]. She typically is admitted at [facility] facility and was actually just d/c in mid-April from that facility. Her INR dani to 4.3 on 05/20/18. Her Coumadin was held a couple of days and she was to resume. There was some apparent confusion re: her understanding of dose to resume and she started taking 2.5 mg each , , , , and 10mg each , instead of 10mg each , and 7.5 mg all other days. Her INR therefore decreased to 1.2 as outpt and she was sent in for heparin ggt by her offal roller. - Resume previous dosing of Coumadin 10mg on - and 7.5mg on Qb-Up-Nq-Fr- dose as she reports that she had been stable on this dose for quite some time. - Cont. Heparin gtt - Monitor INR daily and PT/PTT per protocol - INR is 2.1 today - repeat INR in AM if > 2.5 plan to DC tomorrow - Dr. An previously discussed discharge plans with family to assist with medication administration. Chronic systolic CHF, EF 20%, currently compensated - Home meds continued CKD, stage 3 - Labs are around baseline - Monitor COPD, compensated. - Duonebs PRN Atrial fibrillation Hx NSVT s/p BIV AICD PT consulted (2) H/O mitral valve replacement with mechanical valve Code(s): Z95.2 - Presence of prosthetic heart valve Status: Acute (3) Systolic CHF, chronic Code(s): I50.22 - Chronic systolic (congestive) heart failure Status: Chronic (4) Atrial fibrillation Code(s): I48.91 - Unspecified atrial fibrillation Status: Chronic (5) COPD (chronic obstructive pulmonary disease) Code(s): J44.9 - Chronic obstructive pulmonary disease, unspecified Status: Acute - Attending Attestation Patient examined. Assessment and plan formulated with Carline Rico PA-C. I agree with the above.
[2018-06-10] MEDS: Senna/Docusate Sodium 8.6/50 MG Tablet PO SCH (19:14)
[2018-06-10] MEDS: Zolpidem Tartrate 5 MG Tablet PO PRN (23:54)
[2018-06-11 05:37] LABS: Activated Partial Thrombo Time 62.7 sec (24.3-30.1); INR 2.6 Ratio; Prothrombin Time 26.5 sec (9.8-11.6)
[2018-06-11] MEDS: Levothyroxine 50 MCG Tablet PO SCH (06:00)
[2018-06-11] MEDS: Ramipril 2.5 MG Capsule PO SCH (08:15)
[2018-06-11] MEDS: Magnesium Oxide 400 MG Tablet PO SCH (08:15)
[2018-06-11] MEDS: Carvedilol 12.5 MG Tablet PO SCH (08:15)
[2018-06-11] MEDS: Tiotropium Bromide 18 MCG/ACT Inhaler INH SCH (08:16)
[2018-06-11] MEDS: Furosemide 40 MG Tablet PO SCH (08:16)
[2018-06-11 09:31] VITALS: RESP 19
--- NOTE | 2018-06-11 12:28 | P.DS ---
<Carline Rico W - Last Filed: 06/11/18 12:26> Date of admission: 06/05/18 17:25 Primary care physician: Bao Villarreal MD Attending physician on discharge: Js Kenyon Anticipated date of discharge: 06/11/18 Brief History from admission: Pt is 57 yo with systolic chf ef 20%, afib, nsvt s/p bivaicd, copd, ckd 3, and mechanical mitral valve. Called by her linen aide today. Pt with subtherapuetic inr of 1.2. about 10d ago it was 2.5..Pt says she was on her usual dose of 7.5mg 2x week and 5mg 5x week when she was admitted to [facility] 3weeks ago with supretherapeutic inr. She says the dose was reduced to 10mg 2x week and 2.5mg 5x per week. I was called today and told she was taking 7.5mg alternating with 5mg. Pt family also expresses concern that pt is not taking her medications correctly. Dr Patel says she uses heparin frequently at other hospital and has no allergic reactions to heparin as she did with enoxaparin. DS: Diagnosis - Discharge Diagnosis (1) Subtherapeutic international normalized ratio (INR) Status: Acute (2) H/O mitral valve replacement with mechanical valve Status: Acute (3) Systolic CHF, chronic Status: Chronic (4) Atrial fibrillation Status: Chronic (5) COPD (chronic obstructive pulmonary disease) Status: Acute DS: Summary Hospital Course: Mitral mechanical valve replacement, subtherapeutic INR - We were called by linen aide to admit for subtherapeutic INR for [facility]. MVR - Pt says she is NOT allergic to heparin and uses all the time at [facility]. She typically is admitted at [facility] facility and was actually just d/c in mid-April from that facility. Her INR dani to 4.3 on 05/20/18. Her Coumadin was held a couple of days and she was to resume. There was some apparent confusion re: her understanding of dose to resume and she started taking 2.5 mg each , W, F, Sa, Garcia and 10mg each M, Th instead of 10mg each , Th and 7.5 mg all other days. Her INR therefore decreased to 1.2 as outpt and she was sent in for heparin ggt by her linen aide. - Resume previous dosing of Coumadin 10mg on - and 7.5mg on Om-Lf-Ea dose as she reports that she had been stable on this dose for quite some time. - Cont. Heparin gtt - Monitor INR daily and PT/PTT per protocol - INR is 2.6 today - Dr. An previously discussed discharge plans with family to assist with medication administration. Chronic systolic CHF, EF 20%, currently compensated - Home meds continued CKD, stage 3 - Labs are around baseline - Monitor COPD, compensated. - Duonebs PRN Atrial fibrillation Hx NSVT s/p BIV AICD PT consulted - Time Spent with Patient Total time spent providing and/or coordinating discharge services: Greater than 30 minutes - Quality: VTE Deep Vein Thrombosis/Pulmonary Embolism Present on Admission: No Exam Vital signs: Vital Signs 06/10/18 16:00 06/10/18 20:00 06/11/18 00:00 Temperature 98.1 F 97.3 F L 97.8 F Pulse Rate 81 75 79 Respiratory Rate 17 18 18 Blood Pressure 109/55 L 87/51 L 97/55 L Pulse Oximetry 98 97 97 06/11/18 04:00 06/11/18 08:00 Temperature 97.7 F 97.7 F Pulse Rate 71 72 Respiratory Rate 18 19 Blood Pressure 80/53 L 84/52 L Pulse Oximetry 94 L 94 L Intake & Output 06/10/18 06/11/18 06/11/18 18:59 06:59 18:59 Intake Total 1440 / 1440 460 / 460 Balance 1440 / 1440 460 / 460 Weight 79.2 kg Intake: Oral 1440 / 1440 460 / 460 Other: # Voids 6 2 Date of Last Bowel Movement 06/09/18 # Bowel Movements 2 Narrative: GENERAL: NAD, AAOx3 CARDIO: Regular rate and rhythm with mid-systolic click and 2/6 LENKA along LSB RESP: Breath sounds equal bilaterally. ABD: +BS, soft, non-tender, nondistended. EXT: No cyanosis, FLEMING, trace edema in distal BLE Results Procedures completed during hospitalization: none Labs on day of discharge: Labs from last 24 hours 06/11/18 04:35 PT 26.5 H INR 2.6 APTT 62.7 H <Js Kenyon - Last Filed: 06/17/18 11:17> Date of admission: 06/05/18 17:25 Primary care physician: Bao Villarreal MD DS: Diagnosis - Discharge Diagnosis (1) Subtherapeutic international normalized ratio (INR) Status: Acute (2) H/O mitral valve replacement with mechanical valve Status: Acute (3) Systolic CHF, chronic Status: Chronic (4) Atrial fibrillation Status: Chronic (5) COPD (chronic obstructive pulmonary disease) Status: Acute DS: Summary Hospital Course: Patient examined. Assessment and plan formulated with Carline Rico PA-C. I agree with the above. - Time Spent with Patient Total time spent providing and/or coordinating discharge services: Discharge Plan - Discharge Order Discharge Orders: Discharge Order (Routine); Ordered 06/11/18 Ordered By: Carline Rico - Discharge Details Anticipated Discharge Date: 06/09/18 - Physicians Team Primary Care Provider: Bao Villarreal Attending Provider: Abdiel An Other Providers: [facility]
[2018-06-11 12:48] VITALS: BP 85/54; PULSE 55; TEMP 97.5; O2SAT 96
== END 2018-06-11 14:45 | disposition home health service (06) ==
LOC: NEPC 11:11 → NEDA 11:11 → N06 19:59
PROVIDERS: ADMIT Hospitalist; ATTEND Hospitalist